=== PATIENT | female | born 1965 | race Hispanic/Latino ===

== ENCOUNTER → 2019-06-25 15:18 | Outpatient (CLI) | payer OTHER, SELFPAY ==
[2019-06-25 17:43] LABS: Add Manual Diff / Slide Review NO; Basophils Absolute Auto 0 /uL (0-100); Basophils Percent Auto 0.4 % (0-2); Eosinophils Absolute Auto 200 /uL (0-450); Eosinophils Percent Auto 2.6 % (2-4); Hematocrit 40.7 % (36-46); Hemoglobin 13.7 g/dL (12.0-16.0); Lymphocytes Absolute Auto 3500 /uL (1100-4500); Lymphocytes Percent Auto 44.9 % (25-40); Mean Corpuscular HGB Conc 33.6 % (30-36); Mean Corpuscular Hemoglobin 27.7 PG (26-34); Mean Corpuscular Volume 82.4 fL (80-100); Monocytes Absolute Auto 300 /uL (0-900); Monocytes Percent Auto 4.4 % (3-14); Neutrophils Absolute Auto 3700 /uL (1500-7000); Neutrophils Percent Auto 47.7 % (50-75); Red Blood Cell Count 4.94 X10^6/uL (4.0-5.2); Red Cell Distribution Width 13.9 % (11.6-14.8); White Blood Cell Count 7.7 X10^3/uL (4.5-11.0)
[2019-06-25 18:03] LABS: Platelet Count 52 X10^3/uL (150-400)
== END ==
PROVIDERS: Referring Provider Nurse Practitioner Family; Visit Provider Nurse Practitioner Family
DX: D75.1 Secondary polycythemia (principal)
CPT/HCPCS: 36415; 85025

== ENCOUNTER → 2019-11-27 14:31 | Outpatient (CLI) | payer OTHER, SELFPAY ==
[2019-11-28 23:17] LABS: COVID19 Sendout Not Detected (Not Detect)
== END ==
PROVIDERS: PCP Nurse Practitioner Family; Visit Provider Physician Assistant
DX: Z01.812 Encounter for preprocedural laboratory examination (principal)
CPT/HCPCS: 87635

== ENCOUNTER 2019-11-30 07:50 | Day surgery (SDC) | payer OTHER, SELFPAY ==
[2019-11-26 13:31] VITALS: BMI 32.6
[2019-11-30] VITALS (11 sets, daily range): BP systolic 118–162; BP diastolic 63–93; PULSE 71–110; RESP 14–21; TEMP 36.1–36.3; O2SAT 93–100; BMI 32.1
--- NOTE | 2019-11-30 10:26 | PM.PREOP ---
Pre-operative Note COVID-19 COVID-19 status: Negative Result date/Date tested (Pos, Neg/Pending): 11/27/19 Interval Note History & Physical reviewed/Exam performed by Physician: Yes Changes to H&P: No H&P completed within 30 days and has changed as indicated here:: See interim H&P.
--- NOTE | 2019-11-30 10:27 | PM.HP.1 ---
History of Present Illness History of Present Illness Date Patient Seen: 11/30/19 Time Patient Seen: 10:27 Chief complaint: Right Arthroscopy Shoulder Narrative: The patient has a full history and physical dated October 29, 2019 in the chart. There are no substantive updates to that history. The patient's surgery was delayed due to insurance authorization issues regarding the need for platelets prior to surgery. Patient History Medical History (Updated 11/30/19 @ 10:30 by Valeriy Valdivia MD) Humeral fracture (Acute) Family & Social History Social History: household members spouse,family Tobacco & Substance use: Tobacco type cigarettes Smoking Status Current every day smoker alcohol intake frequency holiday/special occasion Substance Use Type marijuana Meds Home Medications and Allergies Home Medications Medication Instructions Recorded Confirmed Type gabapentin 100 mg PO TID 11/30/19 11/30/19 History insulin glargine [Lantus Solostar 60 unit SUBCUT BEDTIME 11/30/19 11/30/19 History U-100 Insulin] insulin lispro [Humalog KwikPen 35 unit SUBCUT DAILY 11/30/19 11/30/19 History Insulin] Allergies Allergy/AdvReac Type Severity Reaction Status Date / Time No Known Drug Allergies Allergy Unverified 11/27/19 14:30 Review of Systems Review of Systems ROS: Yes All systems reviewed with the patient and are negative except as otherwise documented Exam Vital Signs (past 8 hours): - 11/30/19 08:39 11/30/19 09:39 11/30/19 10:04 Temperature 97.3 F L 97.4 F L 97.1 F L Pulse Rate 74 71 71 Respiratory Rate 20 16 16 Blood Pressure 127/65 138/67 129/63 Pulse Oximetry 98 Oxygen Delivery Method Room Air Narrative Exam Narrative: HEENT examination is normocephalic atraumatic. Chest is clear to auscultation. Heart is regular rate and rhythm no rubs murmurs or gallops. Abdomen is soft nontender with normal down will bowel sounds. Right upper extremity examination is as documented in prior office notes. Objective Labs Labs: Laboratory Results - last 24 hr 11/29/19 11/30/19 09:28 06:53 Blood Type A Positive Cancelled Rho(D) Type Cancelled Assessment & Plan Assessment & Plan narrative: As documented in the prior office notes, the patient has a work related right shoulder injury that has failed to respond to non operative measures. She is thrombocytopenic and the reason for this is unclear. Unfortunately we have not been allowed to workup because of her thrombocytopenia. We will be transfusing platelets prior to surgery and then she will undergo shoulder arthroscopy to address the shoulder pain. The risks benefits and alternatives were discussed with the patient on my prior preoperative visit in October. They have been repeated today. Risks discussed included but were not limited to: Potential excessive bleeding, potential failure to improve pain, stiffness, infection, nerve damage, deep venous thrombosis, pulmonary embolism, stroke, permanent paralysis and . COVID-19 COVID-19 status: Negative Result date/Date tested (Pos, Neg/Pending): 11/27/19 Time Spent With Patient Time with patient: 15-24 minutes
[2019-11-30 10:53] LABS: Platelet Count 112 X10^3/uL (150-400)
[2019-11-30] MEDS: LACTATED RINGERS 1,000 ML 42 ML IV ×2 (11:00→12:53)
[2019-11-30] MEDS: fentaNYL 100 MCG/2 ML INJ 50 MCG IV (11:09)
[2019-11-30] MEDS: MIDAZOLAM 2 MG/2 ML VIAL IV (11:09)
--- NOTE | 2019-11-30 11:17 | SUR.OPER ---
Lateral on padded OR bed with amador bag positioner, head on pillow, gel axillary roll in place, bottom leg bent with gel pad under knee to foot, upper leg straight and supported with pillows. Operative arm secured in shoulder positioning suspension device. non-operative arm secured on padded arm board. Safety belt at hip, tape over blanket securing lower legs.
[2019-11-30] MEDS: CEFAZOLIN 2 GM/100 ML FROZ.PIGGY IV (11:29)
--- NOTE | 2019-11-30 11:32 | SUR.PREOP ---
Block start time [1109] . Monitoring initiated and maintained throughout procedure. Oxygen and medications given per anesthesiologist instructions. Patient remained stable throughout procedure, no adverse reactions noted. Block end time [1124]. 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 pt taken to OR in stable condition by Lianet
[2019-11-30] MEDS: SODIUM CHLORIDE IRRIG SOLUTION 3,000 ML, EPINEPHrine 1 MG IRR (12:11)
[2019-11-30] MEDS: BUPIVACAINE 0.5% W/ EPI (PF) 30 ML VIAL INJ (12:11)
--- NOTE | 2019-11-30 12:29 | PM.PROC.1 ---
Procedures Date/Time Date of procedure: 11/30/19 Time of procedure: 11:09 Nerve Block Time out performed: Yes Local anesthetic used: other Location of anesthetic used: See notation below. Nerve blocks: brachial plexus (Right Interscalene Block) Procedure successful: Yes Patient tolerated procedure: well Complications: none Additional comments: Right Interscalene (Brachial Plexus) Block for post op pain relief. Procedure, benefits and risks explained to patient preoperatively with assistance from supervisor char house. Questions answered and patient signed the consent. Patient transferred to Block Room and monitors applied. O2 per NC placed. Patient name, site and side identified. Ultrasound and Nerve Stimulator utilized. Chloroprep and sterile drape placed. Landmarks ID'd and plexus visualized with US. Local skin wheal with Lidocaine 1% (25g needle). 50mm 22g sheathed nerve block needle advanced. Positive twitch to 6mAmp. Negative aspiration followed by 2ml test dose. Incremental aspirations-injection to total volume of 20m. (5ml Lidocaine 2% with epi and 15ml Bupivacaine 0.5%). Patient tolerated procedure well and was trasferred to OR for surgery. ESTEVAN Palomares MD
--- NOTE | 2019-11-30 13:06 | P.OP_ITS ---
Operative Date/Time/Diagnoses Date of procedure: 11/30/19 Time of procedure: 13:06 Pre-op diagnosis: Right shoulder strain with biceps rupture Post-op diagnosis: same Procedure & Clinicians Procedure: Right shoulder arthroscopic major debridement with debridement of synovitis, labral tear and biceps stump as well as subacromial decompression and lysis of subacromial scar Same procedure as scheduled: Yes Indications: The patient is a 54-year-old woman who injured her shoulder at work. She has previously injured this shoulder as well with a history of a humeral fracture. She went on to develop ongoing discomfort which was not relieved by non operative measures. She has agreed to surgery after discussion the risks, benefits and alternatives. Risks discussed included but were not limited to: Failure to improve, stiffness, infection, nerve damage, deep venous thrombosis, pulmonary embolism, stroke, myocardial infarction, permanent paralysis and . Surgeon: Valeriy Valdivia Click Yes if Unassisted: Yes Anesthesia Type: General, Peripheral nerve block and Local Operative Notes Findings: 1. Normal glenohumeral cartilage 2. Degenerative fraying of the superior labrum which was debrided 3. Intense inflammation of the synovial tissue in the superior shoulder 4. Intact glenohumeral ligaments 5. Intact subscapularis 6. Ruptured biceps with a small residual stump in the joint. 7. Intact supraspinatus with some calcified crystals in the capsule. 8. Intact infraspinatus 9. Normal axillary pouch 10. Intact bursal surface of the rotator cuff with no evidence for calcific d eposit overlying the area of the small areas of calcification in the joint capsule 11. Type 2 acromion with impingement lesion 12. Acromioclavicular joint not visualized due to lack of preoperative symptoms 13. Mildly restricted flexion and external rotation at the side with no evidence for pathologic laxity. Closure Type: primary Specimen(s): none sent Estimated Blood Loss (mL): 5 Blood products transfused: none Procedure in detail: The patient was seen in the preoperative area where she identified her right shoulder as the operative site. She received a platelet transfusion due to her history of thrombocytopenia. She then underwent an interscalene block for postoperative pain control. She also received preoperative antibiotics. She was taken to the operating room and placed on the operating room table in a supine position. She underwent the induction of a general anesthetic. She was then examined under anesthesia prior to being repositioned in the left lateral decubitus position with an axillary roll and amador bag as well as padding for all pressure points. The right arm was prepared from the fingertips to the base of the neck with ChloraPrep in the usual fashion draped through sterile drapes. The right arm was placed in 10 lb of balanced skin suspension. The subcutaneous landmarks were outlined on the skin with marking pen and portal sites selected for the posterior portal. Diagnostic arthroscopy ensued with result given above. During diagnostic arthroscopy an anterior portal was created both for outflow and the placement of a shaver. There was some difficulty accessing the shoulder joint for my 1st attempt this portal so a 2nd portal was made lower down using a Wissinger karon to identify the appropriately place. The shaver was then inserted and used to debride the labral tear, the biceps stump and the significant inflammation in the rotator interval. An 18 gauge needle was placed percutaneously near the area of the small calcific deposits in the rotator cuff capsule. The arthroscope was then withdrawn and placed in the subacromial space. A lateral portal was created for instrumentation. The suture was identified and the cuff in this area carefully palpated and perforated with the 18 gauge needle looking for calcific deposit, none was found. An extensive bursectomy was performed due to scarring in the subacromial bursa. There was obviously an impingement lesion. The type 2 acromion was therefore converted to a type 1 acromion using the cutting block technique. At the completion of this all arthroscopic equipment was removed, the wounds were closed with 4 0 Monocryl and Steri-Strips. A total of 10 mL of 0.5% Marcaine was injected into the soft tissues and the subacromial space for postoperative pain control. Dressings of sterile 4x4s, and ABD and an adhesive dressing were applied followed by the sling. The patient was then transferred to the recovery room in good condition having tolerated the procedure well. Complications: none Post-operative Condition: stable Disposition: PACU Plan for aftercare: The patient will be maintained on a standard arthroscopic subacromial decompression physical therapy program. She will be discharged today. Follow up will be in 10-14 days. She will receive a prescription for both oxycodone and Vistaril for pain control.
--- NOTE | 2019-11-30 16:44 | SUR.PHASEII ---
D/c instructions provided to pt and son with shape hand present. [facility] called and insurance info gotten to call to [facility] in [facility] so pt could get Rx fille.d left in w/c with RN escort to car with her son.
== END 2019-11-30 15:45 | disposition home or self-care (01) ==
PROVIDERS: Anesthesiology; PCP Nurse Practitioner Family; Referring Provider Orthopaedic Surgery; Visit Provider Orthopaedic Surgery
PROC: (CPT 29805; principal; 2019-11-30 10:45)
DX: S46.211A Strain of muscle, fascia and tendon of other parts of biceps, right arm, initial encounter (principal); S43.421A Sprain of right rotator cuff capsule, initial encounter; M25.811 Other specified joint disorders, right shoulder; D69.6 Thrombocytopenia, unspecified; Y99.0 Civilian activity done for income or pay
CPT/HCPCS: 29823; 29826; 36415; 36430; 64450; 85049; 86900; 86901; J0171; J0690; J2250; J2405; J2704; J3010; P9035

== ENCOUNTER → 2021-04-06 13:06 | Outpatient (CLI) | payer OTHER, SELFPAY ==
--- NOTE | 2021-04-06 | DI.RAD.S_ITS ---
PROCEDURE: FL SHOULDER INJECTION MR/CT RT INDICATIONS: Strain of muscle, fascia and tendon of other parts COMPARISON: None. TECHNIQUE: The indications, alternatives, benefits, risks, and complications of the procedure were explained to the patient. Written informed consent was obtained and placed in the chart. The shoulder was examined fluoroscopically and a site for needle placement chosen for entry into the glenohumeral joint from an anterior approach. The skin was prepped and draped in a sterile fashion, and 1% lidocaine infiltrated from skin down to joint capsule. A spinal needle was inserted into the glenohumeral joint, and a small amount of iodinated contrast media injected to confirm intra-articular placement of the needle tip. This was followed by approximately 12 mL dilute solution of a gadolinium containing MR contrast agent. The needle was removed and a dressing was applied. The patient was given postprocedural instructions and sent to the MR suite for MR imaging. FINDINGS: A single fluoroscopic spot image demonstrates intra-articular location of injected iodinated contrast. IMPRESSION: Successful fluoroscopically guided administration of dilute Gadolinium solution into the shoulder joint for MR arthrogram. Dictated by: Helen Fabian MD, PhD on 04/06/2021 at 14:52 Approved by: Helen Fabian MD, PhD on 04/06/2021 at 14:53
--- NOTE | 2021-04-06 | DI.MRI.S_ITS ---
PROCEDURE: MR SHOULDER RT W CON INDICATIONS: Strain of muscle, fascia and tendon of other parts TECHNIQUE: After the administration of 12 mL of dilute intra-articular Gadolinium contrast, oblique coronal T1 and T2 spin echo with fat saturation, oblique sagittal T1 spin echo with and without fat saturation, oblique sagittal T2 fast spin echo with fat saturation, axial T1 spin echo with fat saturation through the shoulder. COMPARISON: None. FINDINGS: Image quality: Excellent. Rotator cuff: Mild diffuse T2 signal elevation throughout the supraspinatus tendon at the humeral insertion site extending the musculotendinous junction. Superimposed high-grade intrasubstance and articular surface tearing of the mid and posterior supraspinatus tendon at the humeral insertion site extending the musculotendinous junction. Subscapularis, infraspinatus, and teres minor tendons are intact. No rotator cuff atrophy. Bones and bursae: No bone marrow contusions or fractures. Moderate acromioclavicular joint degeneration. The acromion demonstrates conventional anatomy, without an os acromiale. Capsule and soft tissues: The labrum and glenohumeral ligaments appear intact. The long head of the biceps tendon demonstrates normal location and morphology. The rotator interval appears normal, without fibrosis. The coracohumeral ligament is of normal thickness. No intra-articular bodies. IMPRESSION: 1. Supraspinatus tendinopathy with superimposed high-grade tearing. 2. Acromioclavicular joint osteoarthritis. Dictated by: Shima Flores M.D. on 04/06/2021 at 15:00 Approved by: Shima Flores M.D. on 04/06/2021 at 15:26
== END ==
PROVIDERS: PCP Nurse Practitioner Family; Referring Provider Orthopaedic Surgery; Visit Provider Orthopaedic Surgery
DX: S46.011A Strain of muscle(s) and tendon(s) of the rotator cuff of right shoulder, initial encounter (principal); M19.011 Primary osteoarthritis, right shoulder; X58.XXXA Exposure to other specified factors, initial encounter
CPT/HCPCS: 23350; 73222; 77002

== ENCOUNTER → 2022-01-07 12:19 | Outpatient (CLI) | payer OTHER, SELFPAY ==
[2022-01-07 13:59] LABS: Add Manual Diff / Slide Review NO; Basophils Absolute Auto 0 /uL (0-100); Basophils Percent Auto 0.5 % (0-2); Eosinophils Absolute Auto 300 /uL (0-450); Eosinophils Percent Auto 3.8 % (2-4); Hematocrit 40.4 % (36-46); Hemoglobin 13.6 g/dL (12.0-16.0); Lymphocytes Absolute Auto 3800 /uL (1100-4500); Lymphocytes Percent Auto 47.1 % (25-40); Mean Corpuscular HGB Conc 33.6 % (30-36); Mean Corpuscular Hemoglobin 27.6 PG (26-34); Mean Corpuscular Volume 82.2 fL (80-100); Monocytes Absolute Auto 500 /uL (0-900); Monocytes Percent Auto 5.9 % (3-14); Neutrophils Absolute Auto 3400 /uL (1500-7000); Neutrophils Percent Auto 42.7 % (50-75); Platelet Count 56 X10^3/uL (150-400); Red Blood Cell Count 4.92 X10^6/uL (4.0-5.2); Red Cell Distribution Width 13.7 % (11.6-14.8)
== END ==
PROVIDERS: PCP Nurse Practitioner Family; Referring Provider Orthopaedic Surgery; Visit Provider Orthopaedic Surgery
DX: Z01.812 Encounter for preprocedural laboratory examination (principal)
CPT/HCPCS: 36415; 85025

== ENCOUNTER → 2024-08-28 10:53 | Outpatient (CLI) | payer OTHER, SELFPAY ==
--- NOTE | 2024-08-28 10:56 | DI.ECHO.S_ITS ---
[facility] : : [address] : : [place] : : [id number] : : Phone: [phone] Echocardiogram Report + + :Name: MYLES PRADO Study Date: 08/28/2024 Height: 61 in : :[facility] ReadingLocation: Weight: 145 lb : : Gender: Female BSA: 1.6 m2 : :: 1965 Age: 59 yrs BP: 101/58 mmHg: :Reason For Study: CHRONIC SYSTOLIC HEART FAILURE : :Ordering Physician: ZANDER FUCHS Performed By: Adolfo Henry : :Referring: ZANDER FUCHS : + + Interpretation Summary 1. Mildly compromised left ventricular systolic function with ejection fraction of 45 to 50% there is slight hypokinesis of the inferolateral segment. Mild concentric LVH. Grade 2 diastolic dysfunction. 2. The right ventricular contractility is normal. 3. All cardiac chambers are of normal size. 4. No significant valvular abnormalities. 5. No obvious intracardiac shunts. 6. No obvious intracardiac masses nor thrombi. 7. No hemodynamically significant pericardial effusion. Conclusion: Mildly compromised left ventricular systolic function with no significant valvular abnormalities. When compared with previous echocardiogram, there is improvement of the left ventricular systolic function. Procedure: A two-dimensional transthoracic echocardiogram with color flow and Doppler was performed. The study quality was technically good. Comparison is made with the echocardiogram of 02/02/2024. The patient was in normal sinus rhythm during the exam. Left Ventricle: The left ventricle is normal in size. Left ventricular wall thickness is mildly increased. There is no ventricular septal defect visualized. The ejection fraction is estimated to be 45-50%. There are regional wall motion abnormalities as specified. Right Ventricle: The right ventricle is normal in size and function. Atria: The left atrial size is normal. Right atrial size is normal. There is no Doppler evidence for an interatrial shunt. Mitral Valve: The mitral valve leaflets appear normal. There is no evidence of stenosis, fluttering, or prolapse. There is no mitral regurgitation noted. Aortic Valve: The aortic valve is trileaflet. The aortic valve is mildly calcified. No aortic regurgitation is present. Tricuspid Valve: The tricuspid valve leaflets are thin and pliable. There is trace tricuspid regurgitation. Pulmonic Valve: The pulmonic valve leaflets are thin and pliable; valve motion is normal. There is trace pulmonic regurgitation. Great Vessels: The aortic root is normal size. The dimensions of the ascending aorta are normal. The pulmonary artery is normal size. The inferior vena cava was not visualized. Pericardium/ Pleura There is no pericardial effusion. MMode/2D Measurements & Calculations LVIDd: 3.6 cm LVOT diam: 1.7 cm LVIDs: 2.5 cm Ao root diam: 2.5 cm FS: 29.9 % asc Aorta Diam: 2.6 cm EPSS: 0.78 cm IVSd: 1.1 cm LVPWd: 1.1 cm LV chávez. diameter/BSA (cm/m^2): 2.2 LV sys. diameter/BSA (cm/m^2): 1.5 LA A2 area: 15.6 cm2 RA long axis: 3.4 cm LA A4 area: 13.7 cm2 RA area: 6.8 cm2 LA length (vol): 5.2 cm RA vol: 11.5 ml LA vol: 34.7 ml RA : 7.0 ml/m2 LA vol index: 21.0 ml/m2 RVD1 (basal): 3.8 cm RVD2 (mid): 3.3 cm TAPSE: 1.8 cm Doppler Measurements & Calculations Ao V2 max: 150.7 cm/sec LVOT Max Benedicto: 85.3 cm/sec Ao V2 mean: 116.0 cm/sec LV V1 max P.9 mmHg Ao max P.1 mmHg LV V1 VTI: 26.7 cm Ao mean P.7 mmHg HAILY(I,D): 1.3 cm2 Ao V2 VTI: 42.8 cm HAILY(V,D): 1.2 cm2 sev ratio: 0.62 HAILY indexed to BSA (cm^2/m^2): 0.82 MV E max benedicto: 88.7 cm/sec TR max benedicto: 125.9 cm/sec MV A max benedicto: 77.1 cm/sec TR max P.2 mmHg MV E/A: 1.2 PA V2 max: 92.1 cm/sec Med Peak E' Benedicto: 3.0 cm/sec PA V2 mean: 62.0 cm/sec E/E' med: 29.9 PA mean P.7 mmHg Lat Peak E' Benedicto: 3.6 cm/sec PA pr(Accel): 27.6 mmHg E/E' lat: 25.0 E/e' average: 27.4 MV dec time: 0.15 sec SV(LVOT): 57.6 ml Reading Physician:SUMAYA
== END ==
PROVIDERS: PCP Nurse Practitioner Family; Referring Provider Nurse Practitioner Family; Visit Provider Internal Medicine
DX: I50.22 Chronic systolic (congestive) heart failure (principal)
CPT/HCPCS: 93306

== ENCOUNTER 2025-03-23 14:57 | Emergency (ER) | payer OTHER, SELFPAY ==
[2025-03-23 15:14] VITALS: BP 114/54; PULSE 61; RESP 18; TEMP 36.3; O2SAT 99; BMI 27.8
[2025-03-23 17:15] VITALS: PULSE 66; O2SAT 100
[2025-03-23 17:30] VITALS: PULSE 65; RESP 15; O2SAT 100
[2025-03-23 17:31] VITALS: BP 107/52; PULSE 65; RESP 15; O2SAT 100
[2025-03-23 17:46] LABS: Hematocrit 48.6 % (36-46); Hemoglobin 16.0 g/dL (12.0-16.0); Lymphocytes Absolute Auto 1400 /uL (1100-4500); Mean Corpuscular HGB Conc 33.0 % (30-36); Mean Corpuscular Hemoglobin 27.6 PG (26-34); Mean Corpuscular Volume 83.6 fL (80-100); Platelet Count 54 X10^3/uL (150-400)
[2025-03-23 17:48] LABS: Add Manual Diff / Slide Review SLIDE REVIEW
[2025-03-23 17:59] LABS: Alanine Aminotransferase 26 IU/L (<35); Albumin 4.6 g/dL (3.5-5.0); Albumin Globulin Ratio 1.3 (1.0-2.8); Alkaline Phosphatase 103 U/L (38-126); Blood Urea Nitrogen 20 mg/dL (7-17); Calcium 9.6 mg/dL (8.4-10.2); Carbon Dioxide 24 mmol/L (22-32); Chloride 107 mmol/L (98-107); Estimated Glomerular Filt Rate > 60 mL/min (>60); Globulin 3.5 g/dL (1.7-4.1); Glucose 207 mg/dL (70-99); HEMOLYSIS 36 (0-50); Potassium 4.3 mmol/L (3.4-5.1); Sodium 141 mmol/L (137-145); Total Protein 8.1 g/dL (6.3-8.2)
[2025-03-23 18:00] VITALS: BP 110/53; PULSE 66; RESP 14; O2SAT 100
[2025-03-23 18:11] LABS: Troponin I 0.019 ng/mL (0.01-0.034)
[2025-03-23 18:20] LABS: RBC Morphology Normal Morphology
[2025-03-23 18:30] VITALS: BP 125/61; PULSE 66; RESP 15; O2SAT 100
--- NOTE | 2025-03-23 18:33 | ED.GENADULT ---
HPI - General Adult General Chief complaint: Diabetic Problem Stated complaint: Poss blood sugar low, urinary issues, chills Time Seen by Provider: 03/23/25 17:13 Source: credit collections clerk Mode of arrival: Ambulatory History of Present Illness HPI narrative: 60-year-old female patient with a history of type 2 diabetes , heart valve replacementand hypertension who had unconsciousness or poor responsiveness when her sister visited her this morning. She was diaphoretic and her sister administered soda pop and the patient's mental status improved some. Paramedics arrived and found a blood sugar of 56. Repeat sugar 58. Patient declined ambulance transport. The paramedics gave her glucose. Patient states that she feels very tired and sleepy on presentation to triage. She takes daily Lantus and has a weeklyibed injection. She says she takes her medications as prescribed. labs had been sent by the time I saw the patient. Patient had no energy yesterday and 3 episodes of diarrhea but no nausea, vomiting or fever. She had poor appetite. Today her appetite has been better and no diarrhea. Related Data Home Medications ?Medication ?Instructions ?Recorded ?Confirmed gabapentin 100 mg capsule 100 mg PO TID 11/30/19 11/30/19 insulin glargine 100 unit/mL (3 60 unit SUBCUT BEDTIME 11/30/19 11/30/19 mL) subcutaneous pen (Lantus Solostar U-100 Insulin) insulin lispro 100 unit/mL 35 unit SUBCUT DAILY 11/30/19 11/30/19 subcutaneous pen (Humalog KwikPen (U-100) Insulin) Previous Rx's ?Medication ?Instructions ?Recorded hydroxyzine pamoate 25 mg capsule 25 mg PO Q6HR PRN Spasms #30 caps 11/30/19 oxycodone 5 mg tablet 5 mg PO Q4HR PRN Pain, Moderate 11/30/19 (4-6) #40 tabs Allergies Allergy/AdvReac Type Severity Reaction Status Date / Time No Known Drug Allergies Allergy Verified 03/23/25 15:14 Review of Systems Review of Systems ROS Unobtainable: All systems reviewed & are unremarkable except as noted in HPI and below Constitutional Constitutional: Reports as per HPI Gastrointestinal Gastrointestinal: Reports as per HPI Endocrine Endocrine: Reports as per HPI Patient History Medical History (Updated 03/23/25 @ 18:48 by Tito Rojas MD) Humeral fracture Social History household members: spouse and family Smoking Status: Current every day smoker Smoking Status: Current every day smoker alcohol intake frequency: holidays/special occasions only Exam Narrative Exam Narrative: General: Alert and conversant. No distress. Appears well nourished and well hydrated Craniofacial: No evidence of trauma. Nontender and no swelling. Eyes: PERRLA EOMI conjunctiva clear HEENT: Tragus, pinnae nontender. Oropharynx clear with no swelling, exudate or asymmetry of the pharynx. Nares clear. No sinus tenderness Neck: No tenderness or adenopathy. No meningismus. No JVD Lungs: Clear to auscultation with good air movement. No wheezing, rales or rhonchi. No respiratory distress Cardiac: Regular rate and rhythm with no appreciable murmur or gallop Abdomen: Soft, nontender with no distention or masses. Normal bowel sounds. No rebound or guarding Musculoskeletal: Exam of the extremities, axial spine and ribcage reveals no deformity, bony tenderness or swelling. Range of motion intact Neuro: Alert and oriented. Cranial nerves, motor, sensory and cerebellar all grossly intact. No focal deficit Skin: Warm and normal color. No rashes Psychological: Normal affect and interaction. No evidence of delusion or psychosis. Normal mood. Initial Vital Signs Initial Vital Signs: Vital Signs Temperature 97.3 F L 03/23/25 15:14 Pulse Rate 61 03/23/25 15:14 Respiratory Rate 18 03/23/25 15:14 Blood Pressure 114/54 L 03/23/25 15:14 Pulse Oximetry 99 03/23/25 15:14 Oxygen Delivery Method Room Air 03/23/25 15:14 Course Orders Ordered: ED Orders 03/23/25 17:14 EKG-12 Lead Stat 03/23/25 17:36 CBC Auto Diff [Complete Blood Count AUTO DIFF] Stat CMP [Comprehensive Metabolic Panel] Stat Trop I [Troponin I] Stat Vital Signs Vital signs: Vital Signs - 8 hr 03/23/25 17:15 03/23/25 17:30 03/23/25 17:31 Pulse Rate 66 65 65 Respiratory Rate 15 15 Blood Pressure Pulse Oximetry 100 100 100 Oxygen Delivery Method Room Air 03/23/25 17:31 03/23/25 18:00 03/23/25 18:00 Pulse Rate 66 Respiratory Rate 14 Blood Pressure 107/52 L 110/53 L Pulse Oximetry 100 Oxygen Delivery Method 03/23/25 18:30 03/23/25 18:30 Pulse Rate 66 Respiratory Rate 15 Blood Pressure 125/61 Pulse Oximetry 100 Oxygen Delivery Method Medical Decision Making Medical Records Medical records reviewed: Yes I reviewed the patient's medical records. Lab Data Lab results reviewed: Yes I reviewed the patient's lab results. 03/23/25 17:36 03/23/25 17:36 Labs: Lab Results 03/23/25 03/23/25 03/23/25 Range/Units 15:25 17:36 18:41 WBC 6.8 (4.5-11.0) X10^3/uL RBC 5.82 H (4.0-5.2) X10^6/uL Hgb 16.0 (12.0-16.0) g/dL Hct 48.6 H (36-46) % MCV 83.6 (80-100) fL MCH 27.6 (26-34) PG MCHC 33.0 (30-36) % RDW 14.4 (11.6-14.8) % Plt Count 54 L (150-400) X10^3/uL Neut % (Auto) 73.1 (50-75) % Lymph % (Auto) 20.4 L (25-40) % Andrews % (Auto) 4.0 (3-14) % Eos % (Auto) 1.6 L (2-4) % Baso % (Auto) 0.9 (0-2) % Neut # (Auto) 5000 (2529-9118) /uL Lymph # (Auto) 1400 (4306-6197) /uL Andrews # (Auto) 300 (0-900) /uL Eos # (Auto) 100 (0-450) /uL Baso # (Auto) 100 (0-100) /uL Plt Morphology Comment RBC Morphology Normal morphology Sodium 141 (137-145) mmol/L Potassium 4.3 (3.4-5.1) mmol/L Chloride 107 (98-107) mmol/L Carbon Dioxide 24 (22-32) mmol/L BUN 20 H (7-17) mg/dL Creatinine 0.72 (0.52-1.04) mg/dL Estimated GFR > 60 (>60) mL/min BUN/Creatinine Ratio 27.8 H (6-22) Glucose 207 H (70-99) mg/dL POC Whole Bld Glucose 216 H 177 H (70-99) mg/dL Calcium 9.6 (8.4-10.2) mg/dL Total Bilirubin 0.6 (0.2-1.3) mg/dL AST 33 (14-36) IU/L ALT 26 (<35) IU/L Alkaline Phosphatase 103 (38-126) U/L Troponin I 0.019 (0.01-0.034) ng/mL Total Protein 8.1 (6.3-8.2) g/dL Albumin 4.6 (3.5-5.0) g/dL Globulin 3.5 (1.7-4.1) g/dL Albumin/Globulin Ratio 1.3 (1.0-2.8) Point of Care Testing Glucose POC 177 Urine Dip Bedside Urine Glucose 1000 mg/dl Bedside Urine Bilirubin - Negative Bedside Urine Ketone - Negative Urine Specific [place] 1.015 Bedside Urine Occult Blood - Negative Bedside Urine pH 6.0 Bedside Urine Protein - Negative Bedside Urine Urobilinogen - Negative Bedside Urine Nitrite - Negative Bedside Urine Leukocytes - Negative Esterase Point of care testing: Point of Care Testing Glucose POC 177 Urine Dip Bedside Urine Glucose 1000 mg/dl Bedside Urine Bilirubin - Negative Bedside Urine Ketone - Negative Urine Specific [place] 1.015 Bedside Urine Occult Blood - Negative Bedside Urine pH 6.0 Bedside Urine Protein - Negative Bedside Urine Urobilinogen - Negative Bedside Urine Nitrite - Negative Bedside Urine Leukocytes - Negative Esterase MDM Narrative Medical decision making narrative: patient has improved while under observation here in the ER. No further hypoglycemia or symptoms. This may have been initiated by her diarrhea and mild viral illness most of which occurred yesterday. However she is now with stable blood sugars. Her son is here to take her home and keep an eye on her. She will monitor blood sugars and take frequent small calories Discharge Plan Departure Patient Disposition: Home Clinical Impression: Hypoglycemia, Viral illness Instructions: Hypoglycemia, DI for Diabetes Type 2 Activity Restrictions/Additional Instructions: plan: Hydration, rest and supportive care with close monitoring of blood glucose and frequent small meals to maintain adequate blood glucose. Follow up with your doctor for recheck within the next 4 days. Return to the ER if worse Prescriptions: No Action gabapentin 100 mg Capsule 100 mg PO TID insulin lispro [Humalog KwikPen Insulin] 100 unit/mL Insulin Pen 35 unit SUBCUT DAILY Rx Instructions: took 20 units last night with dinner Lantus Solostar U-100 Insulin 100 unit/mL (3 mL) Insulin Pen 60 unit SUBCUT BEDTIME oxycodone 5 mg Tablet 5 mg PO Q4HR PRN (Reason: Pain, Moderate (4-6)) Qty: 40 0RF hydroxyzine pamoate 25 mg Capsule 25 mg PO Q6HR PRN (Reason: Spasms) Qty: 30 0RF Referrals: Chani Mora ARNP [Primary Care Provider, Medical] Stand Alone Forms: Patient Portal/API
== END 2025-03-23 19:06 | disposition home or self-care (01) ==
PROVIDERS: Emergency Medicine; Emergency Provider Emergency Medicine; PCP Nurse Practitioner Family
DX: E11.649 Type 2 diabetes mellitus with hypoglycemia without coma (principal); Z79.4 Long term (current) use of insulin; Z95.2 Presence of prosthetic heart valve
CPT/HCPCS: 36415; 80053; 81003; 82962; 84484; 85025; 99283

== ENCOUNTER 2025-04-19 14:04 | Observation (INO) | payer SELFPAY ==
[2025-04-19] VITALS (24 sets, daily range): BP systolic 90–118; BP diastolic 41–56; PULSE 72–90; RESP 16–22; TEMP 36.7–37.4; O2SAT 90–100; BMI 27.8; BMI 27.5
--- NOTE | 2025-04-19 14:25 | ED.ABDPAIN ---
HPI - Abdominal Pain <Mago Schuster PA-C - Last Filed: 04/19/25 19:36> General Chief Complaint: Abdominal Pain Stated Complaint: back/abd px 4 days Time Seen by Provider: 04/19/25 14:21 Source: patient Mode of arrival: Ambulatory History of Present Illness HPI narrative: Ms. Oumar Chowdhury is a pleasant 60-year-old female, [place] speaking, with a past medical history of insulin-dependent T2DM, HTN, HLD, neuropathy, prior valve repair who presents to the emergency department with her for back and abdominal pain x4 days. Patient is in severe pain in her lower abdomen and lower back. States that she has been having fevers for the last 2 or 3 days. She is having pain with urination and passing gas. She had 1 episode of nonbloody vomiting yesterday. Despite using hospital continuous washer operator, history is somewhat limited due to patient's acute pain. Blood pressure is somewhat low but equal in both arms. No chest pain or trouble breathing. Related Data Home Medications ?Medication ?Instructions ?Recorded ?Confirmed gabapentin 100 mg capsule 300 mg PO TID 11/30/19 04/19/25 insulin glargine 100 unit/mL (3 15 unit SUBCUT DAILY 11/30/19 04/19/25 mL) subcutaneous pen (Lantus Solostar U-100 Insulin) insulin lispro 100 unit/mL 35 unit SUBCUT DAILY 11/30/19 04/19/25 subcutaneous pen (Humalog KwikPen (U-100) Insulin) acetaminophen 325 mg tablet 650 mg PO Q6H pain 04/19/25 04/19/25 (Tylenol) aspirin 81 mg capsule 81 mg PO DAILY 04/19/25 04/19/25 atorvastatin 80 mg tablet 80 mg PO BEDTIME 04/19/25 04/19/25 empagliflozin 10 mg tablet 10 mg PO DAILY 04/19/25 04/19/25 (Jardiance) insulin degludec See Rx Instructions SUBCUT .COMPLEX 04/19/25 04/19/25 lisinopril 2.5 mg tablet 2.5 mg PO DAILY 04/19/25 04/19/25 metoprolol succinate 25 mg 25 mg PO DAILY 04/19/25 04/19/25 tablet,extended release 24 hr semaglutide 0.25 mg or 0.5 mg (2 0.25 mg SUBCUT QWEEK 04/19/25 04/19/25 mg/3 mL) subcutaneous pen injector (Ozempic) spironolactone 25 mg tablet 12.5 mg PO DAILY 04/19/25 04/19/25 Allergies Allergy/AdvReac Type Severity Reaction Status Date / Time No Known Drug Allergies Allergy Verified 04/19/25 14:17 Review of Systems <Mago Schuster PA-C - Last Filed: 04/19/25 19:36> Review of Systems ROS Unobtainable: All systems reviewed & are unremarkable except as noted in HPI and below Patient History <Mago Schuster PA-C - Last Filed: 04/19/25 19:36> Medical History Humeral fracture Social History household members: spouse and family Smoking Status: Current every day smoker Smoking Status: Current every day smoker alcohol intake frequency: holidays/special occasions only Exam <Mago Schuster PA-C - Last Filed: 04/19/25 19:36> Narrative Exam Narrative: GENERAL: 60 year old patient appears stated age. Well-developed patient, in distress 2/2 abdominal pain. HEAD: Atraumatic. Normocephalic. NECK: Trachea midline. Cervical ROM intact. CARDIOVASCULAR: Regular rate and rhythm. RESPIRATORY: ?Nonlabored respirations. ?Speaking in clear, full sentences. ?Clear to auscultation. Breath sounds equal bilaterally. No wheezes, rales, or rhonchi. ? GASTROINTESTINAL: Abdomen soft, nondistended. Exquisitely tender diffusely but worse in the lower quadrants. She does have rebound and guarding. Bowel sounds are auscultated. EXTREMITIES: No LE edema. NEURO: Alert and oriented, is able to answer questions using continuous washer operator. SKIN: Sternal surgical scar. Small abdominal laparoscopic surgical scars. Initial Vital Signs Initial Vital Signs: Vital Signs Temperature 99.3 F 04/19/25 14:17 Pulse Rate 88 04/19/25 14:17 Respiratory Rate 16 04/19/25 14:17 Blood Pressure 90/52 L 04/19/25 14:17 Pulse Oximetry 98 04/19/25 14:17 Oxygen Delivery Method Room Air 04/19/25 14:17 <Tito Rojas MD - Last Filed: 04/19/25 23:13> Initial Vital Signs Initial Vital Signs: Vital Signs Temperature 99.3 F 04/19/25 14:17 Pulse Rate 88 04/19/25 14:17 Respiratory Rate 16 04/19/25 14:17 Blood Pressure 90/52 L 04/19/25 14:17 Pulse Oximetry 98 04/19/25 14:17 Oxygen Delivery Method Room Air 04/19/25 14:17 Course <Mago Schuster PA-C - Last Filed: 04/19/25 19:36> Orders Ordered: ED Orders 04/19/25 14:27 Urinalysis and Microscopic Stat 04/19/25 14:34 CT abdomen pelvis w con Stat EKG-12 Lead Stat 04/19/25 14:57 XR chest 1V Stat 04/19/25 15:00 Blood Culture Stat 04/19/25 15:05 Complete Blood Count AUTO DIFF Stat Comprehensive Metabolic Panel Stat Lactate (Lactic Acid) Stat PTT Partial Thromboplastin Mciky Stat Procalcitonin Stat Prothrombin Time INR Stat Troponin I Stat 04/20/25 08:00 Complete Blood Count AUTO DIFF Routine Platelets Stat Fentanyl (Fentanyl 100 Mcg/2 Ml Inj) 50 mcg IV Q1H PRN PRN Reason: Pain, Severe (7-10) Last Admin: 04/19/25 19:26 Dose: 50 mcg Documented By: Admin: 04/19/25 18:17 Dose: 50 mcg Documented By: TONJA Hydromorphone HCl (Hydromorphone Hcl 0.5 Mg/0.5 Ml Syringe) 1 mg IV Q2H PRN PRN Reason: Pain, Moderate (4-6) Hydromorphone HCl (Hydromorphone 1 Mg/Ml Syringe) 2 mg IV Q3HR PRN PRN Reason: severe pain (7-10) Potassium Chloride/Dextrose/Sod Cl (Dextrose 5%-0.45%Ns W/Kcl 20meq) 1,000 mls @ 100 mls/hr IV CONT ALYSON Last Admin: 04/19/25 20:52 Dose: 100 mls/hr Documented By: TONJA Piperacillin Sod/Tazobactam (Sod 4.5 gm/ Sodium Chloride) 100 mls @ 25 mls/hr IV Q8H ALYSON Naloxone HCl (Naloxone 0.4 Mg/Ml Vial) 0.2 mg IV Q2MIN PRN PRN Reason: Opiate Reversal Discontinued Medications Dextrose (Dextrose 50 % In Water 25 Gm/50 Ml Syringe) 25 gm IV NOW ONE Stop: 04/19/25 14:49 Last Admin: 04/19/25 16:02 Dose: 25 gm Documented By: Martir Dextrose (Dextrose 50 % In Water 25 Gm/50 Ml Syringe) 25 gm IV NOW ONE Stop: 04/19/25 16:30 Last Admin: 04/19/25 19:29 Dose: 25 gm Documented By: RLC Fentanyl (Fentanyl 100 Mcg/2 Ml Inj) 25 mcg IV NOW ONE Stop: 04/19/25 15:29 Last Admin: 04/19/25 15:50 Dose: 25 mcg Documented By: Martir Sodium Chloride (Normal Saline 0.9%) 1,434 mls @ 956 mls/hr 30 ml/kg infuse over 90 min (1434 ml) IV NOW ONE Stop: 04/19/25 16:03 Last Infusion: 04/19/25 16:39 Dose: Infused Documented By: [facility] Admin: 04/19/25 15:07 Dose: 956 mls/hr Documented By: [facility] Piperacillin Sod/Tazobactam (Sod 4.5 gm/ Sodium Chloride) 100 mls @ 200 mls/hr IV STAT ONE Stop: 04/19/25 14:35 Last Infusion: 04/19/25 16:03 Dose: Infused Documented By: [facility] Admin: 04/19/25 15:11 Dose: 200 mls/hr Documented By: Martir Dextrose/Sodium Chloride (Dextrose 5%-0.9% Ns) 1,000 mls @ 125 mls/hr IV CONT ALYSON Last Infusion: 04/19/25 20:50 Dose: Infused Documented By: [facility] Admin: 04/19/25 18:17 Dose: 125 mls/hr Documented By: Martir Potassium Chloride 20 meq/ (Sodium Chloride) 1,010 mls @ 100 mls/hr IV CONT ALYSON Last Admin: 04/19/25 20:51 Dose: Not Given Documented By: RLMartir Piperacillin Sod/Tazobactam (Sod 4.5 gm/ Sodium Chloride) 100 mls @ 25 mls/hr IV Q8H [facility] Ondansetron HCl (Ondansetron 4 Mg/2 Ml Inj) 4 mg IV NOW ONE Stop: 04/19/25 14:43 Last Admin: 04/19/25 15:09 Dose: 4 mg Documented By: Martir Vital Signs Vital signs: Vital Signs - 8 hr 04/19/25 15:30 04/19/25 16:02 04/19/25 16:03 Pulse Rate 77 80 Respiratory Rate Blood Pressure 97/49 L Pulse Oximetry 99 99 04/19/25 16:03 04/19/25 16:30 04/19/25 16:30 Pulse Rate 80 90 Respiratory Rate Blood Pressure 112/54 L Pulse Oximetry 100 97 04/19/25 17:00 04/19/25 17:00 04/19/25 17:30 Pulse Rate 82 Respiratory Rate Blood Pressure 93/50 L 105/53 L Pulse Oximetry 99 04/19/25 17:30 04/19/25 18:00 04/19/25 18:00 Pulse Rate 81 79 Respiratory Rate 19 17 Blood Pressure 110/54 L Pulse Oximetry 100 93 04/19/25 18:30 04/19/25 18:30 04/19/25 19:00 Pulse Rate 77 Respiratory Rate 17 Blood Pressure 118/55 L 100/49 L Pulse Oximetry 99 04/19/25 19:00 04/19/25 19:22 04/19/25 19:22 Pulse Rate 75 74 Respiratory Rate 17 19 Blood Pressure 93/44 L Pulse Oximetry 91 90 L 04/19/25 19:30 04/19/25 19:31 04/19/25 19:31 Pulse Rate 72 73 Respiratory Rate 18 19 Blood Pressure 90/41 L Pulse Oximetry 100 99 <Tito Rojas MD - Last Filed: 04/19/25 23:13> Orders Ordered: ED Orders 04/19/25 14:27 Urinalysis and Microscopic Stat 04/19/25 14:34 CT abdomen pelvis w con Stat EKG-12 Lead Stat 04/19/25 14:57 XR chest 1V Stat 04/19/25 15:00 Blood Culture Stat 04/19/25 15:05 Complete Blood Count AUTO DIFF Stat Comprehensive Metabolic Panel Stat Lactate (Lactic Acid) Stat PTT Partial Thromboplastin Micky Stat Procalcitonin Stat Prothrombin Time INR Stat Troponin I Stat 04/20/25 08:00 Complete Blood Count AUTO DIFF Routine Platelets Stat Fentanyl (Fentanyl 100 Mcg/2 Ml Inj) 50 mcg IV Q1H PRN PRN Reason: Pain, Severe (7-10) Last Admin: 04/19/25 19:26 Dose: 50 mcg Documented By: Admin: 04/19/25 18:17 Dose: 50 mcg Documented By: TONJA Hydromorphone HCl (Hydromorphone Hcl 0.5 Mg/0.5 Ml Syringe) 1 mg IV Q2H PRN PRN Reason: Pain, Moderate (4-6) Hydromorphone HCl (Hydromorphone 1 Mg/Ml Syringe) 2 mg IV Q3HR PRN PRN Reason: severe pain (7-10) Potassium Chloride/Dextrose/Sod Cl (Dextrose 5%-0.45%Ns W/Kcl 20meq) 1,000 mls @ 100 mls/hr IV CONT ALYSON Last Admin: 04/19/25 20:52 Dose: 100 mls/hr Documented By: TONJA Piperacillin Sod/Tazobactam (Sod 4.5 gm/ Sodium Chloride) 100 mls @ 25 mls/hr IV Q8H ALYSON Naloxone HCl (Naloxone 0.4 Mg/Ml Vial) 0.2 mg IV Q2MIN PRN PRN Reason: Opiate Reversal Discontinued Medications Dextrose (Dextrose 50 % In Water 25 Gm/50 Ml Syringe) 25 gm IV NOW ONE Stop: 04/19/25 14:49 Last Admin: 04/19/25 16:02 Dose: 25 gm Documented By: TONJA Dextrose (Dextrose 50 % In Water 25 Gm/50 Ml Syringe) 25 gm IV NOW ONE Stop: 04/19/25 16:30 Last Admin: 04/19/25 19:29 Dose: 25 gm Documented By: TONJA Fentanyl (Fentanyl 100 Mcg/2 Ml Inj) 25 mcg IV NOW ONE Stop: 04/19/25 15:29 Last Admin: 04/19/25 15:50 Dose: 25 mcg Documented By: TONJA Sodium Chloride (Normal Saline 0.9%) 1,434 mls @ 956 mls/hr 30 ml/kg infuse over 90 min (1434 ml) IV NOW ONE Stop: 04/19/25 16:03 Last Infusion: 04/19/25 16:39 Dose: Infused Documented By: Admin: 04/19/25 15:07 Dose: 956 mls/hr Documented By: TONJA Piperacillin Sod/Tazobactam (Sod 4.5 gm/ Sodium Chloride) 100 mls @ 200 mls/hr IV STAT ONE Stop: 04/19/25 14:35 Last Infusion: 04/19/25 16:03 Dose: Infused Documented By: Admin: 04/19/25 15:11 Dose: 200 mls/hr Documented By: TONJA Dextrose/Sodium Chloride (Dextrose 5%-0.9% Ns) 1,000 mls @ 125 mls/hr IV CONT ALYSON Last Infusion: 04/19/25 20:50 Dose: Infused Documented By: Admin: 04/19/25 18:17 Dose: 125 mls/hr Documented By: TONJA Potassium Chloride 20 meq/ (Sodium Chloride) 1,010 mls @ 100 mls/hr IV CONT ALYSON Last Admin: 04/19/25 20:51 Dose: Not Given Documented By: TONJA Piperacillin Sod/Tazobactam (Sod 4.5 gm/ Sodium Chloride) 100 mls @ 25 mls/hr IV Q8H [facility] Ondansetron HCl (Ondansetron 4 Mg/2 Ml Inj) 4 mg IV NOW ONE Stop: 04/19/25 14:43 Last Admin: 04/19/25 15:09 Dose: 4 mg Documented By: TONJA Vital Signs Vital signs: Vital Signs - 8 hr 04/19/25 15:30 04/19/25 16:02 04/19/25 16:03 Pulse Rate 77 80 Respiratory Rate Blood Pressure 97/49 L Pulse Oximetry 99 99 04/19/25 16:03 04/19/25 16:30 04/19/25 16:30 Pulse Rate 80 90 Respiratory Rate Blood Pressure 112/54 L Pulse Oximetry 100 97 04/19/25 17:00 04/19/25 17:00 04/19/25 17:30 Pulse Rate 82 Respiratory Rate Blood Pressure 93/50 L 105/53 L Pulse Oximetry 99 04/19/25 17:30 04/19/25 18:00 04/19/25 18:00 Pulse Rate 81 79 Respiratory Rate 19 17 Blood Pressure 110/54 L Pulse Oximetry 100 93 04/19/25 18:30 04/19/25 18:30 04/19/25 19:00 Pulse Rate 77 Respiratory Rate 17 Blood Pressure 118/55 L 100/49 L Pulse Oximetry 99 04/19/25 19:00 04/19/25 19:22 04/19/25 19:22 Pulse Rate 75 74 Respiratory Rate 17 19 Blood Pressure 93/44 L Pulse Oximetry 91 90 L 04/19/25 19:30 04/19/25 19:31 04/19/25 19:31 Pulse Rate 72 73 Respiratory Rate 18 19 Blood Pressure 90/41 L Pulse Oximetry 100 99 MDM - Abdominal Pain <Mago C CHA Schuster - Last Filed: 04/19/25 19:36> Medical Records Attestation: I reviewed the patient's medical records. Lab Data 04/19/25 15:05 04/19/25 15:05 Labs: Lab Results 04/19/25 04/19/25 04/19/25 Range/Units 14:27 14:44 15:05 WBC 12.3 H (4.5-11.0) X10^3/uL RBC 5.37 H (4.0-5.2) X10^6/uL Hgb 14.5 (12.0-16.0) g/dL Hct 43.7 (36-46) % MCV 81.4 (80-100) fL MCH 27.0 (26-34) PG MCHC 33.2 (30-36) % RDW 14.0 (11.6-14.8) % Plt Count 51 L (150-400) X10^3/uL Neut % (Auto) 79.4 H (50-75) % Lymph % (Auto) 11.7 L (25-40) % [place] % (Auto) 7.7 (3-14) % Eos % (Auto) 0.5 L (2-4) % Baso % (Auto) 0.7 (0-2) % Neut # (Auto) 9800 H (3547-8114) /uL Lymph # (Auto) 1400 (9792-3381) /uL [place] # (Auto) 900 (0-900) /uL Eos # (Auto) 100 (0-450) /uL Baso # (Auto) 100 (0-100) /uL PT 11.2 (9.4-12.5) SECONDS INR 1.0 (0.9-1.3) APTT 31 (25.1-36.5) SECONDS Sodium 139 (137-145) mmol/L Potassium 4.0 (3.4-5.1) mmol/L Chloride 106 (98-107) mmol/L Carbon Dioxide 24 (22-32) mmol/L BUN 15 (7-17) mg/dL Creatinine 0.75 (0.52-1.04) mg/dL Estimated GFR > 60 (>60) mL/min BUN/Creatinine Ratio 20.0 (6-22) Glucose 63 L (70-99) mg/dL POC Whole Bld Glucose 62 L (70-99) mg/dL Lactate 1.1 (0.7-2.1) mmol/L Calcium 9.3 (8.4-10.2) mg/dL Total Bilirubin 0.8 (0.2-1.3) mg/dL AST 33 (14-36) IU/L ALT 22 (<35) IU/L Alkaline Phosphatase 86 (38-126) U/L Troponin I 0.013 (0.01-0.034) ng/mL Total Protein 7.3 (6.3-8.2) g/dL Albumin 4.1 (3.5-5.0) g/dL Globulin 3.2 (1.7-4.1) g/dL Albumin/Globulin Ratio 1.3 (1.0-2.8) Procalcitonin 0.095 (<0.5) ng/mL Urine Color Yellow Urine Appearance Clear Urine pH 7.0 (4.5-8.0) Ur Specific Lima 1.015 (1.000-1.035) Urine Protein Negative (Negative) Urine Glucose (UA) 3+ H (Negative) g/dL Urine Ketones Negative (NEGATIVE) Urine Occult Blood Negative (Negative) Urine Nitrate Negative (Negative) Urine Bilirubin Negative (NEGATIVE) Urine Urobilinogen 1.0 (0.2) E.U./dL Ur Leukocyte Esterase Negative (NEGATIVE) Urine RBC None seen (0-5/HPF) Urine WBC None seen (0-5/HPF) Ur Squamous Epith Cells 0-1 /hpf (0-5/HPF) Urine Bacteria None seen (None) Urine Mucus 1+ H (Negative) Ur Culture Indicated? Cult not indicated Vol Urine Centrifuged 10ml (spun) 04/19/25 04/19/25 Range/Units 16:35 19:19 WBC (4.5-11.0) X10^3/uL RBC (4.0-5.2) X10^6/uL Hgb (12.0-16.0) g/dL Hct (36-46) % MCV (80-100) fL MCH (26-34) PG MCHC (30-36) % RDW (11.6-14.8) % Plt Count (150-400) X10^3/uL Neut % (Auto) (50-75) % Lymph % (Auto) (25-40) % [place] % (Auto) (3-14) % Eos % (Auto) (2-4) % Baso % (Auto) (0-2) % Neut # (Auto) (9365-6510) /uL Lymph # (Auto) (1711-5718) /uL [place] # (Auto) (0-900) /uL Eos # (Auto) (0-450) /uL Baso # (Auto) (0-100) /uL PT (9.4-12.5) SECONDS INR (0.9-1.3) APTT (25.1-36.5) SECONDS Sodium (137-145) mmol/L Potassium (3.4-5.1) mmol/L Chloride (98-107) mmol/L Carbon Dioxide (22-32) mmol/L BUN (7-17) mg/dL Creatinine (0.52-1.04) mg/dL Estimated GFR (>60) mL/min BUN/Creatinine Ratio (6-22) Glucose (70-99) mg/dL POC Whole Bld Glucose 162 H D 72 (70-99) mg/dL Lactate (0.7-2.1) mmol/L Calcium (8.4-10.2) mg/dL Total Bilirubin (0.2-1.3) mg/dL AST (14-36) IU/L ALT (<35) IU/L Alkaline Phosphatase (38-126) U/L Troponin I (0.01-0.034) ng/mL Total Protein (6.3-8.2) g/dL Albumin (3.5-5.0) g/dL Globulin (1.7-4.1) g/dL Albumin/Globulin Ratio (1.0-2.8) Procalcitonin (<0.5) ng/mL Urine Color Urine Appearance Urine pH (4.5-8.0) Ur Specific Lima (1.000-1.035) Urine Protein (Negative) Urine Glucose (UA) (Negative) g/dL Urine Ketones (NEGATIVE) Urine Occult Blood (Negative) Urine Nitrate (Negative) Urine Bilirubin (NEGATIVE) Urine Urobilinogen (0.2) E.U./dL Ur Leukocyte Esterase (NEGATIVE) Urine RBC (0-5/HPF) Urine WBC (0-5/HPF) Ur Squamous Epith Cells (0-5/HPF) Urine Bacteria (None) Urine Mucus (Negative) Ur Culture Indicated? Vol Urine Centrifuged Point of care testing: Point of Care Testing Glucose POC [address] scan - abdomen/pelvis: Radiologist's Impression: PROCEDURE: CT ABDOMEN PELVIS W CON INDICATIONS: belly pain, hypotension TECHNIQUE: After the administration of intravenous contrast, axial sections acquired from the lung bases to the pubic symphysis. Coronal and sagittal reformats were performed. For radiation dose reduction, the following was used: automated exposure control, adjustment of mA and/or kV according to patient size. COMPARISON: [facility], CT, CT ABDOMEN PELVIS WITH CONTRAST, 02/01/2024, 0:20. FINDINGS: Image quality: Diagnostic. Lower Chest: No significant findings. ABDOMEN: Liver: No solid mass. Gallbladder: Distended gallbladder with mild wall thickening. No inflammatory change adjacent to the gallbladder. Biliary ducts: Interval development of biliary ductal dilatation involving the extrahepatic duct and central intrahepatic ducts with abrupt cutoff at the level of the head of the pancreas. Common duct measures up to 9 mm. Pancreas: No ductal dilation. Spleen: Size is within normal limits. Adrenal Glands: No adrenal nodules. Kidneys and Ureters: No hydronephrosis. No solid mass. No complex renal cystic lesion which requires follow up. Stomach and Bowel: Normal colonic caliber, without significant wall thickening. Peritoneum: No abnormal intraperitoneal fluid. No free air. Ventral Wall: No significant ventral hernia. There is an extensive process in the anterior subcutaneous fat in which there is soft tissue density with developing calcifications which is progressed from the previous study. It most likely represents injection granulomata. Abdominal Nodes: No retroperitoneal or mesenteric adenopathy by size criteria. Vessels: Aorta and inferior vena cava are normal in size. Extensive vascular calcifications are in a pattern which suggest probable longstanding diabetes. PELVIS: Pelvic Organs: Unremarkable. Bladder: No bladder wall thickening, accounting for underdistention. Pelvic Nodes: No enlarged lymph nodes. Miscellaneous: No inguinal hernias are seen. Bones: No aggressive osseous abnormality. IMPRESSION: 1. Acute appendicitis. 2. Extensive, progressive changes in the anterior subcutaneous fat with developing soft tissue density and calcifications suggesting extensive injection granulomata. 3. Findings suggests that there is likely longstanding diabetes. The likely injection granulomata would be secondary to subcutaneous injection of medications. 4. Development of gallbladder dilatation with mild wall thickening and development of biliary ductal dilatation. Suspect possible common duct stone. Comments: Recommend urgent surgical consult for treatment of acute appendicitis. The likely injection granulomata may make it difficult to place laparoscopy ports. This should be understood at the time of surgery. Additionally, findings suggest the possibility of a common duct stone. Recommend nonemergent MRCP. Comment: Findings were discussed with Dr. Mayo on 04/19/2025 at 1654 hours Dictated by: Jamey Walker M.D. on 04/19/2025 at 16:51 Approved by: Jamey Walker M.D. on 04/19/2025 at 17:03 Chest x-ray: Radiologist's Impression: PROCEDURE: XR CHEST 1V INDICATIONS: sepsis abd pain TECHNIQUE: One view of the chest was acquired. COMPARISON: None. FINDINGS: Surgical changes and devices: Sternal wires. Lungs and pleura: Lungs are clear. No pleural effusions or pneumothorax. Mediastinum: Mediastinal contours appear normal. Heart size is normal. Bones and chest wall: No suspicious bony lesions. Overlying soft tissues appear unremarkable. IMPRESSION: No acute pulmonary process. Dictated by: Mily Amado M.D. on 04/19/2025 at 15:31 Approved by: Mily Amado M.D. on 04/19/2025 at 15:31 ECG Data Interpretation: EKG reveals normal sinus rhythm with a rate of 82, QTC 420. T-wave inversion aVL. No prior comparisons. MDM Narrative Medical decision making narrative: 60-year-old female, [place] speaking, with a past medical history of insulin-dependent T2DM, HTN, HLD, neuropathy, prior valve repair who presents to the emergency department with her for back and abdominal pain x4 days. Differential diagnosis includes but is not limited to surgical abdomen, appendicitis, cholecystitis, diverticulitis, perforation, aortic dissection, UTI, nephrolithiasis, ureterolithiasis, etc. On exam the patient is in acute distress secondary to lower abdominal pain. Reports that she has been having fevers as well. No chest pain or difficulty breathing. Blood pressure is low but equal in both arms, 101/49, 102/56. Her abdominal exam reveals diffuse tenderness worse in the lower quadrants, rebound and guarding. Discussed case immediately with the ED attending physician. Sepsis order set initiated in addition to Zosyn, 30 mL/kg fluids, fentanyl and Zofran. Point of care glucose is low, 63, amp of D50 ordered. Labs reveal elevated white blood cell count 12.3. Hemoglobin 14.5 hematocrit 43.7. Platelets are low at 51 which is chronic for the patient. Normal LFTs. Troponin negative. Urine without signs of infection. Chest x-ray reveals no acute pulmonary process. Abdomen and pelvis CT results were called and discussed with Dr. Mayo. They reveal acute appendicitis, significant injection granuloma. Development of gallbladder dilatation with mild wall thickening and development of biliary ductal dilatation, suspect possible common duct stone. Recommend urgent surgical consultation, nonemergent MRCP. Called and discussed case with general surgeon on-call, Dr. Deutsch, who will come in and see the patient. Patient's platelets are low, 51. 1815: Discussed case with heme Onc at [facility], Dr. Hickey. She recommends the patient having 1 unit of platelets running during surgery but that the patient has not necessarily need preop platelets. 1 unit of platelets can expect to raise overall platelet count 10 to 20. 1820: Gen surg, Dr. Deutsch, at the bedside. 1855: Dr. Deutsch will admit the patient and consult with the hospitalist. He will facilitate ordering of platelets as needed. Patient is stable for transfer to the floor at this time. NPO tonight, plan for surgery tomorrow. <Tito Rojas MD - Last Filed: 04/19/25 23:13> Lab Data Attestation: I reviewed the patient's lab results. Labs: Lab Results 04/19/25 04/19/25 04/19/25 Range/Units 14:27 14:44 15:05 WBC 12.3 H (4.5-11.0) X10^3/uL RBC 5.37 H (4.0-5.2) X10^6/uL Hgb 14.5 (12.0-16.0) g/dL Hct 43.7 (36-46) % MCV 81.4 (80-100) fL MCH 27.0 (26-34) PG MCHC 33.2 (30-36) % RDW 14.0 (11.6-14.8) % Plt Count 51 L (150-400) X10^3/uL Neut % (Auto) 79.4 H (50-75) % Lymph % (Auto) 11.7 L (25-40) % [place] % (Auto) 7.7 (3-14) % Eos % (Auto) 0.5 L (2-4) % Baso % (Auto) 0.7 (0-2) % Neut # (Auto) 9800 H (1569-1222) /uL Lymph # (Auto) 1400 (8620-9591) /uL [place] # (Auto) 900 (0-900) /uL Eos # (Auto) 100 (0-450) /uL Baso # (Auto) 100 (0-100) /uL PT 11.2 (9.4-12.5) SECONDS INR 1.0 (0.9-1.3) APTT 31 (25.1-36.5) SECONDS Sodium 139 (137-145) mmol/L Potassium 4.0 (3.4-5.1) mmol/L Chloride 106 (98-107) mmol/L Carbon Dioxide 24 (22-32) mmol/L BUN 15 (7-17) mg/dL Creatinine 0.75 (0.52-1.04) mg/dL Estimated GFR > 60 (>60) mL/min BUN/Creatinine Ratio 20.0 (6-22) Glucose 63 L (70-99) mg/dL POC Whole Bld Glucose 62 L (70-99) mg/dL Lactate 1.1 (0.7-2.1) mmol/L Calcium 9.3 (8.4-10.2) mg/dL Total Bilirubin 0.8 (0.2-1.3) mg/dL AST 33 (14-36) IU/L ALT 22 (<35) IU/L Alkaline Phosphatase 86 (38-126) U/L Troponin I 0.013 (0.01-0.034) ng/mL Total Protein 7.3 (6.3-8.2) g/dL Albumin 4.1 (3.5-5.0) g/dL Globulin 3.2 (1.7-4.1) g/dL Albumin/Globulin Ratio 1.3 (1.0-2.8) Procalcitonin 0.095 (<0.5) ng/mL Urine Color Yellow Urine Appearance Clear Urine pH 7.0 (4.5-8.0) Ur Specific Lima 1.015 (1.000-1.035) Urine Protein Negative (Negative) Urine Glucose (UA) 3+ H (Negative) g/dL Urine Ketones Negative (NEGATIVE) Urine Occult Blood Negative (Negative) Urine Nitrate Negative (Negative) Urine Bilirubin Negative (NEGATIVE) Urine Urobilinogen 1.0 (0.2) E.U./dL Ur Leukocyte Esterase Negative (NEGATIVE) Urine RBC None seen (0-5/HPF) Urine WBC None seen (0-5/HPF) Ur Squamous Epith Cells 0-1 /hpf (0-5/HPF) Urine Bacteria None seen (None) Urine Mucus 1+ H (Negative) Ur Culture Indicated? Cult not indicated Vol Urine Centrifuged 10ml (spun) 04/19/25 04/19/25 Range/Units 16:35 19:19 WBC (4.5-11.0) X10^3/uL RBC (4.0-5.2) X10^6/uL Hgb (12.0-16.0) g/dL Hct (36-46) % MCV (80-100) fL MCH (26-34) PG MCHC (30-36) % RDW (11.6-14.8) % Plt Count (150-400) X10^3/uL Neut % (Auto) (50-75) % Lymph % (Auto) (25-40) % [place] % (Auto) (3-14) % Eos % (Auto) (2-4) % Baso % (Auto) (0-2) % Neut # (Auto) (9814-2397) /uL Lymph # (Auto) (2226-0028) /uL [place] # (Auto) (0-900) /uL Eos # (Auto) (0-450) /uL Baso # (Auto) (0-100) /uL PT (9.4-12.5) SECONDS INR (0.9-1.3) APTT (25.1-36.5) SECONDS Sodium (137-145) mmol/L Potassium (3.4-5.1) mmol/L Chloride (98-107) mmol/L Carbon Dioxide (22-32) mmol/L BUN (7-17) mg/dL Creatinine (0.52-1.04) mg/dL Estimated GFR (>60) mL/min BUN/Creatinine Ratio (6-22) Glucose (70-99) mg/dL POC Whole Bld Glucose 162 H D 72 (70-99) mg/dL Lactate (0.7-2.1) mmol/L Calcium (8.4-10.2) mg/dL Total Bilirubin (0.2-1.3) mg/dL AST (14-36) IU/L ALT (<35) IU/L Alkaline Phosphatase (38-126) U/L Troponin I (0.01-0.034) ng/mL Total Protein (6.3-8.2) g/dL Albumin (3.5-5.0) g/dL Globulin (1.7-4.1) g/dL Albumin/Globulin Ratio (1.0-2.8) Procalcitonin (<0.5) ng/mL Urine Color Urine Appearance Urine pH (4.5-8.0) Ur Specific [place] (1.000-1.035) Urine Protein (Negative) Urine Glucose (UA) (Negative) g/dL Urine Ketones (NEGATIVE) Urine Occult Blood (Negative) Urine Nitrate (Negative) Urine Bilirubin (NEGATIVE) Urine Urobilinogen (0.2) E.U./dL Ur Leukocyte Esterase (NEGATIVE) Urine RBC (0-5/HPF) Urine WBC (0-5/HPF) Ur Squamous Epith Cells (0-5/HPF) Urine Bacteria (None) Urine Mucus (Negative) Ur Culture Indicated? Vol Urine Centrifuged Point of care testing: Point of Care Testing Glucose POC 72 ECG Data Attestation: I personally reviewed and interpreted this ECG as follows: (Sinus rhythm. Septal Q-waves with poor R-wave progression. Lateral T-wave flattening. Rate 82.) [facility] Narrative Medical decision making narrative: 60-year-old female, Tanzanian speaking, with a past medical history of insulin-dependent T2DM, HTN, HLD, neuropathy, prior valve repair who presents to the emergency department with her for back and abdominal pain x4 days. Differential diagnosis includes but is not limited to surgical abdomen, appendicitis, cholecystitis, diverticulitis, perforation, aortic dissection, UTI, nephrolithiasis, ureterolithiasis, etc. On exam the patient is in acute distress secondary to lower abdominal pain. Reports that she has been having fevers as well. No chest pain or difficulty breathing. Blood pressure is low but equal in both arms, 101/49, 102/56. Her abdominal exam reveals diffuse tenderness worse in the lower quadrants, rebound and guarding. Discussed case immediately with the ED attending physician. Sepsis order set initiated in addition to Zosyn, 30 mL/kg fluids, fentanyl and Zofran. Point of care glucose is low, 63, amp of D50 ordered. Labs reveal elevated white blood cell count 12.3. Hemoglobin 14.5 hematocrit 43.7. Platelets are low at 51 which is chronic for the patient. Normal LFTs. Troponin negative. Urine without signs of infection. Chest x-ray reveals no acute pulmonary process. Abdomen and pelvis CT results were called and discussed with Dr. Mayo. They reveal acute appendicitis, significant injection granuloma. Development of gallbladder dilatation with mild wall thickening and development of biliary ductal dilatation, suspect possible common duct stone. Recommend urgent surgical consultation, nonemergent MRCP. Called and discussed case with general surgeon on-call, Dr. Deutsch, who will come in and see the patient. Patient's platelets are low, 51. 1815: Discussed case with heme Onc at [facility], Dr. Hickey. She recommends the patient having 1 unit of platelets running during surgery but that the patient has not necessarily need preop platelets. 1 unit of platelets can expect to raise overall platelet count 10 to 20. 1820: Gen surg, Dr. Deutsch, at the bedside. 1855: Dr. Deutsch will admit the patient and consult with the hospitalist. He will facilitate ordering of platelets as needed. Patient is stable for transfer to the floor at this time. NPO tonight, plan for surgery tomorrow. I discussed this patient's CT scan findings with the radiologist and with HEATHER Schuster. We discussed the patient's case together and surgical consult. I was available for further consult and evaluation of the patient during the patient's stay here in the ER. Discharge Plan Departure Patient Disposition: Admitted to Surgery Clinical Impression: Thrombocytopenia Acute appendicitis Qualifiers: Acute appendicitis type: unspecified acute appendicitis type Qualified Code(s): K35.80 - Unspecified acute appendicitis Admit Date/Time: 04/19/25 19:54 Admit Provider: Angel Mendez
--- NOTE | 2025-04-19 14:34 | DI.CT.S_ITS ---
PROCEDURE: CT ABDOMEN PELVIS W CON INDICATIONS: belly pain, hypotension TECHNIQUE: After the administration of intravenous contrast, axial sections acquired from the lung bases to the pubic symphysis. Coronal and sagittal reformats were performed. For radiation dose reduction, the following was used: automated exposure control, adjustment of mA and/or kV according to patient size. COMPARISON: [facility], CT, CT ABDOMEN PELVIS WITH CONTRAST, 02/01/2024, 0:20. FINDINGS: Image quality: Diagnostic. Lower Chest: No significant findings. ABDOMEN: Liver: No solid mass. Gallbladder: Distended gallbladder with mild wall thickening. No inflammatory change adjacent to the gallbladder. Biliary ducts: Interval development of biliary ductal dilatation involving the extrahepatic duct and central intrahepatic ducts with abrupt cutoff at the level of the head of the pancreas. Common duct measures up to 9 mm. Pancreas: No ductal dilation. Spleen: Size is within normal limits. Adrenal Glands: No adrenal nodules. Kidneys and Ureters: No hydronephrosis. No solid mass. No complex renal cystic lesion which requires follow up. Stomach and Bowel: Normal colonic caliber, without significant wall thickening. Peritoneum: No abnormal intraperitoneal fluid. No free air. Ventral Wall: No significant ventral hernia. There is an extensive process in the anterior subcutaneous fat in which there is soft tissue density with developing calcifications which is progressed from the previous study. It most likely represents injection granulomata. Abdominal Nodes: No retroperitoneal or mesenteric adenopathy by size criteria. Vessels: Aorta and inferior vena cava are normal in size. Extensive vascular calcifications are in a pattern which suggest probable longstanding diabetes. PELVIS: Pelvic Organs: Unremarkable. Bladder: No bladder wall thickening, accounting for underdistention. Pelvic Nodes: No enlarged lymph nodes. Miscellaneous: No inguinal hernias are seen. Bones: No aggressive osseous abnormality. IMPRESSION: 1. Acute appendicitis. 2. Extensive, progressive changes in the anterior subcutaneous fat with developing soft tissue density and calcifications suggesting extensive injection granulomata. 3. Findings suggests that there is likely longstanding diabetes. The likely injection granulomata would be secondary to subcutaneous injection of medications. 4. Development of gallbladder dilatation with mild wall thickening and development of biliary ductal dilatation. Suspect possible common duct stone. Comments: Recommend urgent surgical consult for treatment of acute appendicitis. The likely injection granulomata may make it difficult to place laparoscopy ports. This should be understood at the time of surgery. Additionally, findings suggest the possibility of a common duct stone. Recommend nonemergent MRCP. Comment: Findings were discussed with Dr. Mayo on 04/19/2025 at 1654 hours Dictated by: Jamey Walker M.D. on 04/19/2025 at 16:51 Approved by: Jamey Walker M.D. on 04/19/2025 at 17:03
--- NOTE | 2025-04-19 14:34 | EKG_ITS ---
[address] [address] Test Date: 2025-04-19 Pat Name: Liz Chowdhury Department: Room: Gender: Female Tooling Supervisor: sena : 1965 Requested By: Order Number: [id number] Reading MD: Colton Marcial MD Measurements Intervals [place] Rate: 82 P: 40 IL: 166 QRS: -23 QRSD: 72 T: 106 QT: 360 QTc: 420 Interpretive Statements Normal sinus rhythm Septal infarct , age undetermined T wave abnormality, consider lateral ischemia Electronically Signed On 04-20-2025 10:17:32 PST by Colton Marcial MD
--- NOTE | 2025-04-19 14:57 | DI.RAD.S_ITS ---
PROCEDURE: XR CHEST 1V INDICATIONS: sepsis abd pain TECHNIQUE: One view of the chest was acquired. COMPARISON: None. FINDINGS: Surgical changes and devices: Sternal wires. Lungs and pleura: Lungs are clear. No pleural effusions or pneumothorax. Mediastinum: Mediastinal contours appear normal. Heart size is normal. Bones and chest wall: No suspicious bony lesions. Overlying soft tissues appear unremarkable. IMPRESSION: No acute pulmonary process. Dictated by: Mily Amado M.D. on 04/19/2025 at 15:31 Approved by: Mily Amado M.D. on 04/19/2025 at 15:31
[2025-04-19 14:59] LABS: Appearance Urine UA CLEAR; Bilirubin Urine UA NEGATIVE (NEGATIVE); Color Urine UA YELLOW; Glucose Urine UA 3+ g/dL (Negative); Ketones Urine UA NEGATIVE (NEGATIVE); Leukocyte Esterase Urine UA NEGATIVE (NEGATIVE); Nitrite Urine UA NEGATIVE (Negative); Occult Blood Urine UA NEGATIVE (Negative); Protein Urine UA NEGATIVE (Negative); Specific Gravity Urine UA 1.015 (1.000-1.035); Urobilinogen Urine UA 1.0 E.U./dL (0.2)
[2025-04-19 15:00] LABS: pH Urine UA 7.0 (4.5-8.0)
[2025-04-19 15:06] LABS: Culture Indicated Urine Cult Not Indicated
[2025-04-19] MEDS: SODIUM CHLORIDE 0.9% 1,434 ML 956 ML IV (15:07)
[2025-04-19] MEDS: ONDANSETRON 4 MG/2 ML INJ IV (15:09)
[2025-04-19] MEDS: PIPERACILLIN/TAZO 4.5 GM in SODIUM CHLORIDE 0.9% 100 ML IV ×2 (15:11→23:37)
[2025-04-19 15:23] LABS: Add Manual Diff / Slide Review NO; Hematocrit 43.7 % (36-46); Hemoglobin 14.5 g/dL (12.0-16.0); Lymphocytes Absolute Auto 1400 /uL (1100-4500); Mean Corpuscular HGB Conc 33.2 % (30-36); Mean Corpuscular Hemoglobin 27.0 PG (26-34); Mean Corpuscular Volume 81.4 fL (80-100); Platelet Count 51 X10^3/uL (150-400)
[2025-04-19 15:34] LABS: INR 1.0 (0.9-1.3); Prothrombin Time 11.2 SECONDS (9.4-12.5)
[2025-04-19 15:37] LABS: PTT Partial Thromboplastin Tim 31 SECONDS (25.1-36.5)
[2025-04-19 15:40] LABS: Alanine Aminotransferase 22 IU/L (<35); Albumin 4.1 g/dL (3.5-5.0); Albumin Globulin Ratio 1.3 (1.0-2.8); Alkaline Phosphatase 86 U/L (38-126); Blood Urea Nitrogen 15 mg/dL (7-17); Calcium 9.3 mg/dL (8.4-10.2); Carbon Dioxide 24 mmol/L (22-32); Chloride 106 mmol/L (98-107); Estimated Glomerular Filt Rate > 60 mL/min (>60); Globulin 3.2 g/dL (1.7-4.1); Glucose 63 mg/dL (70-99); HEMOLYSIS 19 (0-50); Lactate (Lactic Acid) 1.1 mmol/L (0.7-2.1); Potassium 4.0 mmol/L (3.4-5.1); Sodium 139 mmol/L (137-145); Total Protein 7.3 g/dL (6.3-8.2)
[2025-04-19] MEDS: fentaNYL 100 MCG/2 ML INJ 25 MCG IV (15:50)
[2025-04-19 15:52] LABS: Troponin I 0.013 ng/mL (0.01-0.034)
[2025-04-19 15:57] LABS: Procalcitonin 0.095 ng/mL (<0.5)
[2025-04-19] MEDS: DEXTROSE 50 % IN WATER 25 GM/50 ML SYRINGE IV ×2 (16:02→19:29)
[2025-04-19] MEDS: fentaNYL 100 MCG/2 ML INJ 50 MCG IV ×2 (18:17→19:26)
[2025-04-19] MEDS: DEXTROSE 5%-0.9% NS 1,000 ML 125 ML IV (18:17)
--- NOTE | 2025-04-19 19:13 | PM.HP.IH.1 ---
History of Present Illness History of Present Illness Date Patient Seen: 04/19/25 Chief complaint: back/abd px 4 days Narrative: The patient is a 58-year-old female, with type 2 diabetes, hyperlipidemia, hypertension presents with right lower quadrant abdominal pain and back pain. The patient has had back pain for the past 4 days. She has a history of chronic back pain which occurs intermittently and is on gabapentin as well as hydroxyzine for spasms. This latest episode is a lasted for box 4 days. She also has noted the onset of epigastric as well as right lower quadrant abdominal pain. The pain is sharp and is exacerbated by coughing and movement. She also complains that the pain increases with your urination and passing flatus. She speaks only Turkmen and I could not get a feel for whether she has vomited or not. She does admit that she is not hungry and her last meal was yesterday in the afternoon. She also describes fevers and chills. PFSH Medical History Humeral fracture Social History household members: spouse and family Smoking Status: Current every day smoker Meds Home Medications and Allergies Home Medications ?Medication ?Instructions ?Recorded ?Confirmed ?Type gabapentin 100 mg capsule 100 mg PO TID 11/30/19 11/30/19 History hydroxyzine pamoate 25 mg capsule 25 mg PO Q6HR PRN Spasms #30 caps 11/30/19 Rx insulin glargine 100 unit/mL (3 60 unit SUBCUT BEDTIME 11/30/19 11/30/19 History mL) subcutaneous pen (Lantus Solostar U-100 Insulin) insulin lispro 100 unit/mL 35 unit SUBCUT DAILY 11/30/19 11/30/19 History subcutaneous pen (Humalog KwikPen (U-100) Insulin) oxycodone 5 mg tablet 5 mg PO Q4HR PRN Pain, Moderate 11/30/19 Rx (4-6) #40 tabs Allergies Allergy/AdvReac Type Severity Reaction Status Date / Time No Known Drug Allergies Allergy Verified 04/19/25 14:17 Review of Systems Review of Systems ROS: Yes All systems reviewed with the patient and are negative except as otherwise documented Exam Vital Signs (past 8 hours): - 04/19/25 14:17 04/19/25 14:48 04/19/25 14:49 Temperature 99.3 F Pulse Rate 88 82 83 Respiratory Rate 16 Blood Pressure 90/52 L 101/49 L Pulse Oximetry 98 99 99 Oxygen Delivery Method Room Air Room Air 04/19/25 14:50 04/19/25 15:00 04/19/25 15:05 Temperature Pulse Rate 83 83 82 Respiratory Rate Blood Pressure 102/56 L Pulse Oximetry 99 98 98 Oxygen Delivery Method Room Air 04/19/25 15:05 04/19/25 15:30 04/19/25 16:02 Temperature Pulse Rate 77 80 Respiratory Rate Blood Pressure 96/50 L Pulse Oximetry 99 99 Oxygen Delivery Method 04/19/25 16:03 04/19/25 16:03 04/19/25 16:30 Temperature Pulse Rate 80 90 Respiratory Rate Blood Pressure 97/49 L Pulse Oximetry 100 97 Oxygen Delivery Method 04/19/25 16:30 04/19/25 17:00 04/19/25 17:00 Temperature Pulse Rate 82 Respiratory Rate Blood Pressure 112/54 L 93/50 L Pulse Oximetry 99 Oxygen Delivery Method 04/19/25 17:30 04/19/25 17:30 Temperature Pulse Rate 81 Respiratory Rate 19 Blood Pressure 105/53 L Pulse Oximetry 100 Oxygen Delivery Method Oxygen Delivery Method Room Air Narrative Exam Narrative: Patient appears to be edentulous. Neck is supple. Lungs are clear to auscultation bilaterally Cardiac reveals a regular rate and rhythm without murmurs rubs or gallops Abdomen is firm with a voluntary guarding with well-localized right lower quadrant tenderness. Patient has positive percussion tenderness. Bowel sounds are hypoactive. Extremities reveal full range of motion Neuro was grossly intact Objective Imaging CT scan - abdomen: My impression: [place] [address] CT Scan Report Signed Patient: Liz Jacobson MR#: [id number] : 1965 Acct:[id number] Age/Sex: 60 / F Date of Service: 04/19/25 Loc: ED Accession Number: [id number] Procedure: CT abdomen pelvis w con Ordering Provider: Marisabel Fitzpatrick D.O. PROCEDURE: CT ABDOMEN PELVIS W CON INDICATIONS: belly pain, hypotension TECHNIQUE: After the administration of intravenous contrast, axial sections acquired from the lung bases to the pubic symphysis. Coronal and sagittal reformats were performed. For radiation dose reduction, the following was used: automated exposure control, adjustment of mA and/or kV according to patient size. COMPARISON: [facility], CT, CT ABDOMEN PELVIS WITH CONTRAST, 02/01/2024, 0:20. FINDINGS: Image quality: Diagnostic. Lower Chest: No significant findings. ABDOMEN: Liver: No solid mass. Gallbladder: Distended gallbladder with mild wall thickening. No inflammatory change adjacent to the gallbladder. Biliary ducts: Interval development of biliary ductal dilatation involving the extrahepatic duct and central intrahepatic ducts with abrupt cutoff at the level of the head of the pancreas. Common duct measures up to 9 mm. Pancreas: No ductal dilation. Spleen: Size is within normal limits. Adrenal Glands: No adrenal nodules. Kidneys and Ureters: No hydronephrosis. No solid mass. No complex renal cystic lesion which requires follow up. Stomach and Bowel: Normal colonic caliber, without significant wall thickening. Peritoneum: No abnormal intraperitoneal fluid. No free air. Ventral Wall: No significant ventral hernia. There is an extensive process in the anterior subcutaneous fat in which there is soft tissue density with developing calcifications which is progressed from the previous study. It most likely represents injection granulomata. Abdominal Nodes: No retroperitoneal or mesenteric adenopathy by size criteria. Vessels: Aorta and inferior vena cava are normal in size. Extensive vascular calcifications are in a pattern which suggest probable longstanding diabetes. PELVIS: Pelvic Organs: Unremarkable. Bladder: No bladder wall thickening, accounting for underdistention. Pelvic Nodes: No enlarged lymph nodes. Miscellaneous: No inguinal hernias are seen. Bones: No aggressive osseous abnormality. IMPRESSION: 1. Acute appendicitis. 2. Extensive, progressive changes in the anterior subcutaneous fat with developing soft tissue density and calcifications suggesting extensive injection granulomata. 3. Findings suggests that there is likely longstanding diabetes. The likely injection granulomata would be secondary to subcutaneous injection of medications. 4. Development of gallbladder dilatation with mild wall thickening and development of biliary ductal dilatation. Suspect possible common duct stone. Comments: Recommend urgent surgical consult for treatment of acute appendicitis. The likely injection granulomata may make it difficult to place laparoscopy ports. This should be understood at the time of surgery. Additionally, findings suggest the possibility of a common duct stone. Recommend nonemergent MRCP. Comment: Findings were discussed with Dr. Mayo on 04/19/2025 at 1654 hours Dictated by: Jamey Walker M.D. on 04/19/2025 at 16:51 Approved by: Jamey Walker M.D. on 04/19/2025 at 17:03 Labs 04/19/25 15:05 04/19/25 15:05 Labs: Laboratory Results - last 24 hr 04/19/25 04/19/25 04/19/25 14:27 14:44 15:05 WBC 12.3 H RBC 5.37 H Hgb 14.5 Hct 43.7 MCV 81.4 MCH 27.0 MCHC 33.2 RDW 14.0 Plt Count 51 L Neut % (Auto) 79.4 H Lymph % (Auto) 11.7 L [place] % (Auto) 7.7 Eos % (Auto) 0.5 L Baso % (Auto) 0.7 Neut # (Auto) 9800 H Lymph # (Auto) 1400 [place] # (Auto) 900 Eos # (Auto) 100 Baso # (Auto) 100 PT 11.2 INR 1.0 APTT 31 Sodium 139 Potassium 4.0 Chloride 106 Carbon Dioxide 24 BUN 15 Creatinine 0.75 Estimated GFR > 60 BUN/Creatinine Ratio 20.0 Glucose 63 L POC Whole Bld Glucose 62 L Lactate 1.1 Calcium 9.3 Total Bilirubin 0.8 AST 33 ALT 22 Alkaline Phosphatase 86 Troponin I 0.013 Total Protein 7.3 Albumin 4.1 Globulin 3.2 Albumin/Globulin Ratio 1.3 Procalcitonin 0.095 Urine Color Yellow Urine Appearance Clear Urine pH 7.0 Ur Specific [place] 1.015 Urine Protein Negative Urine Glucose (UA) 3+ H Urine Ketones Negative Urine Occult Blood Negative Urine Nitrate Negative Urine Bilirubin Negative Urine Urobilinogen 1.0 Ur Leukocyte Esterase Negative Urine RBC None seen Urine WBC None seen Ur Squamous Epith Cells 0-1 /hpf Urine Bacteria None seen Urine Mucus 1+ H Ur Culture Indicated? Cult not indicated Vol Urine Centrifuged 10ml (spun) 04/19/25 16:35 WBC RBC Hgb Hct MCV MCH MCHC RDW Plt Count Neut % (Auto) Lymph % (Auto) [place] % (Auto) Eos % (Auto) Baso % (Auto) Neut # (Auto) Lymph # (Auto) [place] # (Auto) Eos # (Auto) Baso # (Auto) PT INR APTT Sodium Potassium Chloride Carbon Dioxide BUN Creatinine Estimated GFR BUN/Creatinine Ratio Glucose POC Whole Bld Glucose 162 H D Lactate Calcium Total Bilirubin AST ALT Alkaline Phosphatase Troponin I Total Protein Albumin Globulin Albumin/Globulin Ratio Procalcitonin Urine Color Urine Appearance Urine pH Ur Specific [place] Urine Protein Urine Glucose (UA) Urine Ketones Urine Occult Blood Urine Nitrate Urine Bilirubin Urine Urobilinogen Ur Leukocyte Esterase Urine RBC Urine WBC Ur Squamous Epith Cells Urine Bacteria Urine Mucus Ur Culture Indicated? Vol Urine Centrifuged Assessment & Plan Assessment and plan (1) Acute appendicitis: Qualifiers: Acute appendicitis type: unspecified acute appendicitis type Qualified Code(s): K35.80 - Unspecified acute appendicitis Status: Acute (2) Thrombocytopenia: Status: Acute Plan I had a long discussion with the patient reference to her options for treatment of her appendicitis. Using an language interpreter, we discussed antibiotic therapy and his potential for success and failure. We discussed surgery to include indications, planned procedure, and inherent risks. The patient appeared to understand and wishes to proceed as outlined. I will order a bag of platelets to be available for surgery and plan a surgical procedure for tomorrow. Repeat a CBC in the morning prior to surgery. The patient will be NPO tonight. She will be given Zosyn for g IV q.8 hours until surgery. I have asked the hospitalist service to follow the patient for her comorbidities, most importantly her diabetes. Time-Based Coding :: [TOTAL MINUTES] spent with patient and on the chart (including review of chart, obtaining history, exam, reviewing outside data, placing orders, documenting exam and treatment plan, and counseling patient) on [DATE]. PROFEE Information Technology Technician Document charge(s): Yes
[2025-04-19] MEDS: DEXTROSE 5%-0.45NS W/KCL 20MEQ 1,000 ML 100 MEQ IV (20:52)
[2025-04-20] VITALS (17 sets, daily range): BP systolic 76–136; BP diastolic 38–64; PULSE 61–101; RESP 16–21; TEMP 36.3–37.1; O2SAT 89–99
--- NOTE | 2025-04-20 | PATH_ITS ---
[facility] Accession Number: [id number] No. of containers..01 Tissue . 01 Material submitted: . appendix - APPENDIX . 01 Diagnosis: APPENDIX, APPENDECTOMY: Acute suppurative appendicitis and acute serositis. Negative for malignancy. MRV 04/24/2025 1838 Local . 01 Electronically signed: . Zeke Barone MD, Pathologist NPI- [id number] . 01 Gross description: . Received in formalin with two patient identifiers and appendix, is a 5.5 cm long by 0.5 to 1.1 cm diameter intact appendix. The stapled proximal margin is inked blue. The serosa is hawk-brown and hemorrhagic with fibrinous exudate. The wall is dusky and hemorrhagic, 0.3 to 0.5 cm thick. No perforations are grossly identified. No masses or lesions are grossly identified. Fecaliths are not present. Leak Hunter sections with proximal margin and bisected tip are submitted in cassette A1. ([id number]) /SYKE 04/23/2025 2100 Local . 01 Pathologist provided ICD-10: K35.80 . 01 CPT . 688786 Specimen Comment: A courtesy copy of this report has been sent to [facility] Pathology Performed at: [address] [facility], [place], [place] [id number] MD Bart Shoemaker MD Phone: [phone]
[2025-04-20] MEDS: SODIUM CHLORIDE 0.9% 1,000 ML 1000 ML IV (03:06)
[2025-04-20 04:56] LABS: Add Manual Diff / Slide Review NO; Hematocrit 36.9 % (36-46); Hemoglobin 12.3 g/dL (12.0-16.0); Lymphocytes Absolute Auto 1700 /uL (1100-4500); Mean Corpuscular HGB Conc 33.4 % (30-36); Mean Corpuscular Hemoglobin 27.5 PG (26-34); Mean Corpuscular Volume 82.5 fL (80-100); Platelet Count 37 X10^3/uL (150-400)
[2025-04-20 05:20] LABS: RBC Morphology Normal Morphology
[2025-04-20] MEDS: DEXTROSE 5%-0.45NS W/KCL 20MEQ 1,000 ML 100 MEQ IV (05:58)
--- NOTE | 2025-04-20 06:35 | PM.HP.1 ---
History of Present Illness History of Present Illness Date Patient Seen: 04/19/25 Time Patient Seen: 21:40 Chief complaint: back/abd px 4 days Narrative: 61-year-old Chinese-speaking male with past medical history of insulin-dependent diabetes, hypertension, hyperlipidemia, peripheral neuropathy and prior cardiac valve repair presents with abdominal pain. Per the patient's report the patient started to have lower abdominal pain that started 3 to 4 days ago. The patient also started to have subjective fever but denies any chills, nausea, vomiting, diarrhea, chest pain or shortness of breath. The patient states that his abdominal pain is right lower abdomen and radiates somewhat to his lower back. The patient denies any dysuria or diarrhea. In the emergency room, the patient patient's blood pressure was slightly low normal with systolic in the 90-1 100s. The patient was saturating well on room air. Glucose however was in the 60s and WBC was 12.3. Lactate was normal at 1.1. Other labs were relatively benign with negative troponin. The patient was given Zosyn. CT scan shows sign of acute appendicitis. General surgery was called to admit the patient for possible appendectomy. Medicine service was consulted due to multiple medical chronic condition that would need to be manage preop and postop. The patient was given D50 as well as D5. Also platelet was low at 51. PFSH Medical History Humeral fracture Social History household members: spouse and family Smoking Status: Current every day smoker alcohol intake: never Meds Home Medications and Allergies Home Medications ?Medication ?Instructions ?Recorded ?Confirmed ?Type gabapentin 100 mg capsule 300 mg PO TID 11/30/19 04/19/25 History insulin glargine 100 unit/mL (3 15 unit SUBCUT DAILY 11/30/19 04/19/25 History mL) subcutaneous pen (Lantus Solostar U-100 Insulin) insulin lispro 100 unit/mL 35 unit SUBCUT DAILY 11/30/19 04/19/25 History subcutaneous pen (Humalog KwikPen (U-100) Insulin) acetaminophen 325 mg tablet 650 mg PO Q6H pain 04/19/25 04/19/25 History (Tylenol) aspirin 81 mg capsule 81 mg PO DAILY 04/19/25 04/19/25 History atorvastatin 80 mg tablet 80 mg PO BEDTIME 04/19/25 04/19/25 History empagliflozin 10 mg tablet 10 mg PO DAILY 04/19/25 04/19/25 History (Jardiance) insulin degludec See Rx Instructions SUBCUT .COMPLEX 04/19/25 04/19/25 History lisinopril 2.5 mg tablet 2.5 mg PO DAILY 04/19/25 04/19/25 History metoprolol succinate 25 mg 25 mg PO DAILY 04/19/25 04/19/25 History tablet,extended release 24 hr semaglutide 0.25 mg or 0.5 mg (2 0.25 mg SUBCUT QWEEK 04/19/25 04/19/25 History mg/3 mL) subcutaneous pen injector (Ozempic) spironolactone 25 mg tablet 12.5 mg PO DAILY 04/19/25 04/19/25 History Allergies Allergy/AdvReac Type Severity Reaction Status Date / Time No Known Drug Allergies Allergy Verified 04/19/25 14:17 Review of Systems Review of Systems ROS: Yes All systems reviewed with the patient and are negative except as otherwise documented Exam Vital Signs (past 8 hours): - 04/20/25 02:00 04/20/25 06:05 Temperature 98.7 F Pulse Rate 76 74 Respiratory Rate 20 16 Blood Pressure 105/43 L 98/38 L Pulse Oximetry 97 97 Oxygen Flow Rate 0 0 Oxygen Delivery Method Room Air Oxygen Flow Rate 0 Narrative Exam Narrative: Physical Exam: GENERAL: The patient is not in any acute distressed. Awake and alert. HEENT: Nonicteric sclerae, PERRLA, EOMI. Oropharynx clear. Moist mucous membranes. Conjunctivae appear well perfused. HEART: Regular rate and rhythm without murmurs. No lower extremities edema. LUNGS: Clear to auscultation bilaterally. No wheezing, crackles or rhonchi ABDOMEN: Soft, positive bowel sounds,RUQ tenderness but no rebound. SKIN: No rash, no excessive bruising, petechiae, or purpura. NEUROLOGIC: AxO x 3. Cranial nerves II-XII intact without motor/sensory deficit. Objective Labs 04/20/25 04:40 04/19/25 15:05 Labs: Laboratory Results - last 24 hr 04/19/25 04/19/2504/19/25 14:27 14:44 15:05 WBC 12.3 H RBC 5.37 H Hgb 14.5 Hct 43.7 MCV 81.4 MCH 27.0 MCHC 33.2 RDW 14.0 Plt Count 51 L Neut % (Auto) 79.4 H Lymph % (Auto) 11.7 L Isabella % (Auto) 7.7 Eos % (Auto) 0.5 L Baso % (Auto) 0.7 Neut # (Auto) 9800 H Lymph # (Auto) 1400 Isabella # (Auto) 900 Eos # (Auto) 100 Baso # (Auto) 100 Platelet Estimate RBC Morphology PT 11.2 INR 1.0 APTT 31 Sodium 139 Potassium 4.0 Chloride 106 Carbon Dioxide 24 BUN 15 Creatinine 0.75 Estimated GFR > 60 BUN/Creatinine Ratio 20.0 Glucose 63 L POC Whole Bld Glucose 62 L Lactate 1.1 Calcium 9.3 Total Bilirubin 0.8 AST 33 ALT 22 Alkaline Phosphatase 86 Troponin I 0.013 Total Protein 7.3 Albumin 4.1 Globulin 3.2 Albumin/Globulin Ratio 1.3 Procalcitonin 0.095 Urine Color Yellow Urine Appearance Clear Urine pH 7.0 Ur Specific Dorothy 1.015 Urine Protein Negative Urine Glucose (UA) 3+ H Urine Ketones Negative Urine Occult Blood Negative Urine Nitrate Negative Urine Bilirubin Negative Urine Urobilinogen 1.0 Ur Leukocyte Esterase Negative Urine RBC None seen Urine WBC None seen Ur Squamous Epith Cells 0-1 /hpf Urine Bacteria None seen Urine Mucus 1+ H Ur Culture Indicated? Cult not indicated Vol Urine Centrifuged 10ml (spun) 04/19/25 04/19/25 04/20/25 16:35 19:19 00:29 WBC RBC Hgb Hct MCV MCH MCHC RDW Plt Count Neut % (Auto) Lymph % (Auto) Isabella % (Auto) Eos % (Auto) Baso % (Auto) Neut # (Auto) Lymph # (Auto) Isabella # (Auto) Eos # (Auto) Baso # (Auto) Platelet Estimate RBC Morphology PT INR APTT Sodium Potassium Chloride Carbon Dioxide BUN Creatinine Estimated GFR BUN/Creatinine Ratio Glucose POC Whole Bld Glucose 162 H D 72 97 Lactate Calcium Total Bilirubin AST ALT Alkaline Phosphatase Troponin I Total Protein Albumin Globulin Albumin/Globulin Ratio Procalcitonin Urine Color Urine Appearance Urine pH Ur Specific Dorothy Urine Protein Urine Glucose (UA) Urine Ketones Urine Occult Blood Urine Nitrate Urine Bilirubin Urine Urobilinogen Ur Leukocyte Esterase Urine RBC Urine WBC Ur Squamous Epith Cells Urine Bacteria Urine Mucus Ur Culture Indicated? Vol Urine Centrifuged 04/20/25 04/20/25 04:40 06:26 WBC 8.6 RBC 4.48 Hgb 12.3 Hct 36.9 MCV 82.5 MCH 27.5 MCHC 33.4 RDW 14.3 Plt Count 37 L Neut % (Auto) 69.8 Lymph % (Auto) 19.6 L Isabella % (Auto) 8.0 Eos % (Auto) 1.7 L Baso % (Auto) 0.9 Neut # (Auto) 6000 Lymph # (Auto) 1700 Isabella # (Auto) 700 Eos # (Auto) 100 Baso # (Auto) 100 Platelet Estimate Decreased on smear RBC Morphology Normal morphology PT INR APTT Sodium Potassium Chloride Carbon Dioxide BUN Creatinine Estimated GFR BUN/Creatinine Ratio Glucose POC Whole Bld Glucose 76 Lactate Calcium Total Bilirubin AST ALT Alkaline Phosphatase Troponin I Total Protein Albumin Globulin Albumin/Globulin Ratio Procalcitonin Urine Color Urine Appearance Urine pH Ur Specific Dorothy Urine Protein Urine Glucose (UA) Urine Ketones Urine Occult Blood Urine Nitrate Urine Bilirubin Urine Urobilinogen Ur Leukocyte Esterase Urine RBC Urine WBC Ur Squamous Epith Cells Urine Bacteria Urine Mucus Ur Culture Indicated? Vol Urine Centrifuged Assessment & Plan Assessment & Plan narrative: Acute appendicitis. General surgery is primary team and will defer all management to primary team. Patient is medically stable and cleared for surgery if needed. Insulin-dependent diabetes. No glucose was in the 160s on arrival to our ER. Hold all insulin and will monitor glucose. Patient glucose now in the 140s to 160 with D5 half NS and KCl. Hypertension. Hold all blood pressure medication as well as patient initial blood pressure was low normal. Continue IV fluid and monitor blood pressure closely. Hyperlipidemia. Resume home statin. Thrombocytopenia. Seems to be chronic. Hold ASA. No sign of bleeding. platelet now 51. Monitor for now. Peripheral neuropathy. Resume home gabapentin. DVT prophylaxis defer to primary team. Thank you for your consult and we will continue to monitor patient closely. Please call our daytime hospitalist for any questions or concerns Time-Based Coding :: [TOTAL MINUTES] spent with patient and on the chart (including review of chart, obtaining history, exam, reviewing outside data, placing orders, documenting exam and treatment plan, and counseling patient) on [DATE]. Quality VTE Deep Vein Thrombosis/Pulmonary Embolism Present on Admission: No
--- NOTE | 2025-04-20 08:34 | CM.DANOTE ---
Initial DCP Assessment Note. Review EMR. Independent. Payor:??[employer]? PCP: Summary & Plan:?60 y/o female arrived to ED via POV c/o abd pain. Admitted OBS. Dx. Acute Appy. Plan: OR, discharge when improved. Discharge Planning/Care Management CM Discharge Assessment Start: 04/19/25 21:36 Freq: Status: Active Protocol: Document 04/20/25 08:32 SM (Rec: 04/20/25 08:34 [id number]) Discharge Planning Assessment Assigned Discharge Dayan Wellington RN CM Deep Submergence Vehicle Crewmember Provider Dr. Mora Insurance Coordinated Care Advance Directives? No History Provided By Patient,Family Member,Medical Record Prior Living House Arrangements Household Members spouse,family Barriers to No Discharge Transportation family/friend Arrangement Referrals Initiated None needed Review Status In Process Please Provide Date 04/20/25 Initial DC Assessment Was Performed Next Review Type Continued Stay Review
[2025-04-20] MEDS: SODIUM CHLORIDE 0.9% 500 ML IV (08:45)
[2025-04-20] MEDS: PIPERACILLIN/TAZO 4.5 GM in SODIUM CHLORIDE 0.9% 100 ML IV ×2 (09:37→16:53)
--- NOTE | 2025-04-20 10:23 | PC.NURSE ---
Addendum entered by Marcy Bui RN 04/20/25 18:27: Patient down to [facility] for surgery about 1730, she will have her platelets done down there. BS was in the 80s. Addendum entered by Marcy Bui RN 04/20/25 14:46: Patient complained of 6/10 pain. One mg of iv dilaudid given and patient states that she is feeling better. She understands Australian and speaks very little. Her understands Australian and does speak some as well. She was having some pain to her r.lower quadrant. Patients platelets are here, awaiting for to see if he is gonna infuse them both down in surgery or we are going to start one up here. He states that he will get back to this RN. at bedside and supportive of . Original Note: Patient is alert and oriented x4, we placed a purewick so that she can void. Patients blood pressure to low to get up, down to 76/40. gave an order for a 500cc bolus of NS an this has been given. Patients blood pressure up to 110/46. She is lying supine and denies pain. She states that when she does void, she feels pain to her appendix area. Offered pain medication but patient refused. Patients blood pressure does run low in the past. Patient has a hx of double bypass in 2023. We are awaiting plan from surgery, and they will give her platelets down there, per regulator pin inserter report.
--- NOTE | 2025-04-20 11:33 | P.PN_ITS ---
Subjective Subjective Date Patient Seen: 04/20/25 Interval history: Patient is still complaining of pain. She has pain when she urinates also. Exam Vital Signs (past 8 hours): - 04/20/25 06:05 04/20/25 08:00 04/20/25 10:29 Temperature 98.7 F Pulse Rate 74 74 Respiratory Rate 16 16 Blood Pressure 98/38 L 76/40 L 110/46 L Pulse Oximetry 97 97 Oxygen Flow Rate 0 0 Oxygen Delivery Method Room Air Oxygen Flow Rate 0 Narrative Exam Narrative: Lungs clear to auscultation bilaterally Cardiac was regular rate and rhythm Abdomen reveals well-localized right lower quadrant tenderness with involuntary guarding and percussion tenderness. Objective Labs 04/20/25 04:40 04/19/25 15:05 Labs: Laboratory Results - last 24 hr 04/19/25 04/19/25 04/19/25 14:27 14:44 15:05 WBC 12.3 H RBC 5.37 H Hgb 14.5 Hct 43.7 MCV 81.4 MCH 27.0 MCHC 33.2 RDW 14.0 Plt Count 51 L Neut % (Auto) 79.4 H Lymph % (Auto) 11.7 L [place] % (Auto) 7.7 Eos % (Auto) 0.5 L Baso % (Auto) 0.7 Neut # (Auto) 9800 H Lymph # (Auto) 1400 [place] # (Auto) 900 Eos # (Auto) 100 Baso # (Auto) 100 Platelet Estimate RBC Morphology PT 11.2 INR 1.0 APTT 31 Sodium 139 Potassium 4.0 Chloride 106 Carbon Dioxide 24 BUN 15 Creatinine 0.75 Estimated GFR > 60 BUN/Creatinine Ratio 20.0 Glucose 63 L POC Whole Bld Glucose 62 L Lactate 1.1 Calcium 9.3 Total Bilirubin 0.8 AST 33 ALT 22 Alkaline Phosphatase 86 Troponin I 0.013 Total Protein 7.3 Albumin 4.1 Globulin 3.2 Albumin/Globulin Ratio 1.3 Procalcitonin 0.095 Urine Color Yellow Urine Appearance Clear Urine pH 7.0 Ur Specific B[place]soe 1.015 Urine Protein Negative Urine Glucose (UA) 3+ H Urine Ketones Negative Urine Occult Blood Negative Urine Nitrate Negative Urine Bilirubin Negative Urine Urobilinogen 1.0 Ur Leukocyte Esterase Negative Urine RBC None seen Urine WBC None seen Ur Squamous Epith Cells 0-1 /hpf Urine Bacteria None seen Urine Mucus 1+ H Ur Culture Indicated? Cult not indicated Vol Urine Centrifuged 10ml (spun) Blood Type 04/19/25 04/19/25 04/20/25 16:35 19:19 00:29 WBC RBC Hgb Hct MCV MCH MCHC RDW Plt Count Neut % (Auto) Lymph % (Auto) [place] % (Auto) Eos % (Auto) Baso % (Auto) Neut # (Auto) Lymph # (Auto) [place] # (Auto) Eos # (Auto) Baso # (Auto) Platelet Estimate RBC Morphology PT INR APTT Sodium Potassium Chloride Carbon Dioxide BUN Creatinine Estimated GFR BUN/Creatinine Ratio Glucose POC Whole Bld Glucose 162 H D 72 97 Lactate Calcium Total Bilirubin AST ALT Alkaline Phosphatase Troponin I Total Protein Albumin Globulin Albumin/Globulin Ratio Procalcitonin Urine Color Urine Appearance Urine pH Ur Specific B[place] Urine Protein Urine Glucose (UA) Urine Ketones Urine Occult Blood Urine Nitrate Urine Bilirubin Urine Urobilinogen Ur Leukocyte Esterase Urine RBC Urine WBC Ur Squamous Epith Cells Urine Bacteria Urine Mucus Ur Culture Indicated? Vol Urine Centrifuged Blood Type 04/20/25 04/20/25 04:40 06:26 WBC 8.6 RBC 4.48 Hgb 12.3 Hct 36.9 MCV 82.5 MCH 27.5 MCHC 33.4 RDW 14.3 Plt Count 37 L Neut % (Auto) 69.8 Lymph % (Auto) 19.6 L [place] % (Auto) 8.0 Eos % (Auto) 1.7 L Baso % (Auto) 0.9 Neut # (Auto) 6000 Lymph # (Auto) 1700 [place] # (Auto) 700 Eos # (Auto) 100 Baso # (Auto) 100 Platelet Estimate Decreased on smear RBC Morphology Normal morphology PT INR APTT Sodium Potassium Chloride Carbon Dioxide BUN Creatinine Estimated GFR BUN/Creatinine Ratio Glucose POC Whole Bld Glucose 76 Lactate Calcium Total Bilirubin AST ALT Alkaline Phosphatase Troponin I Total Protein Albumin Globulin Albumin/Globulin Ratio Procalcitonin Urine Color Urine Appearance Urine pH Ur Specific B[place] Urine Protein Urine Glucose (UA) Urine Ketones Urine Occult Blood Urine Nitrate Urine Bilirubin Urine Urobilinogen Ur Leukocyte Esterase Urine RBC Urine WBC Ur Squamous Epith Cells Urine Bacteria Urine Mucus Ur Culture Indicated? Vol Urine Centrifuged Blood Type A Positive [facility] Medical History Humeral fracture Social History household members: spouse and family Smoking Status: Current every day smoker alcohol intake: never Assessment & Plan Assessment and plan (1) Thrombocytopenia: Status: Acute (2) Acute appendicitis: Qualifiers: Acute appendicitis type: unspecified acute appendicitis type Qualified Code(s): K35.80 - Unspecified acute appendicitis Status: Acute (3) Diabetes mellitus: Status: Acute Plan We are still waiting on platelets to come from a larger center. Once we have the platelets available, I will probably give him 1 bag preoperatively and round the 2nd bag intraoperatively as her platelet count has dropped from yesterday evening. Still plan on a laparoscopic appendectomy today Time-Based Coding :: [TOTAL MINUTES] spent with patient and on the chart (including review of chart, obtaining history, exam, reviewing outside data, placing orders, documenting exam and treatment plan, and counseling patient) on [DATE]. Quality VTE Deep Vein Thrombosis/Pulmonary Embolism Present on Admission: No [facility] PROFEE Speeder Machine Operator Document charge(s): Yes
--- NOTE | 2025-04-20 17:40 | P.PN_ITS ---
Subjective Subjective Interval history: 60-year-old female with insulin dependent diabetes mellitus with peripheral neuropathy, hypertension, hyperlipidemia, coronary artery disease status post CABG, and chronic thrombocytopenia who was admitted overnight with acute appendicitis. History is obtained using formal ribbon lap machine tender. Her is also at bedside She reports she was 1st told she had thrombocytopenia when she was living in [place] about 30 years ago. She states she did have some blood work done but was never told what the etiology of her low platelets were. She states when she was with her eldest son LEs were low again. Her eldest son also has had difficulty with thrombocytopenia. She states he was followed by Hematology when he was 2 years old and continues to follow regularly but stopped going about 10 years ago because he no longer wished to see doctors. She states he has difficulties with bleeding gums and difficulty with stopping bleeding when he gets cut. She states she herself has never had that difficulty. She states she did have surgery about 14 months ago with a bypass graft on her heart down at [facility]. She had had a SD and when they were assessing her for surgery they found she had persistent thrombocytopenia. After surgery they recommended follow-up with Hematology. She states she has seen a balance wheel screw hole driller as recently as 3 weeks ago in [place]. She was told by her balance wheel screw hole driller in [place] that she should have transfusions if her platelets get below 55. With regard to her appendicitis, she states she has pain when she urinates due to needing to push to empty her bladder. Otherwise she states her pain is reasonably well controlled. No nausea. Last BM was 2 days ago. Exam Vital Signs (past 8 hours): - 04/20/25 10:29 04/20/25 12:00 04/20/25 16:47 Temperature 98.4 F 97.7 F Pulse Rate 73 65 Respiratory Rate 16 16 Blood Pressure 110/46 L 98/43 L 117/46 L Pulse Oximetry 97 96 Oxygen Flow Rate 0 0 Oxygen Delivery Method Room Air Oxygen Flow Rate 0 Narrative Exam Narrative: GEN: Very pleasant middle-aged female, Alert and oriented x 3, NAD HEENT:NC, Face symmetric CHEST: Respiratory excursions symmetric, CTAB CV: RRR, no M/R/G ABD: Soft, obese, tender in the right lower quadrant/ND, BT present in all 4 quadrants, no organomegaly or masses EXTR: warm, well perfused, no C/C/E SKIN: warm and dry, no rash NEURO: Alert and oriented x 3, nonfocal Objective Labs 04/20/25 04:40 04/19/25 15:05 Labs: Laboratory Results - last 24 hr 04/19/25 04/20/25 04/20/25 19:19 00:29 04:40 WBC 8.6 RBC 4.48 Hgb 12.3 Hct 36.9 MCV 82.5 MCH 27.5 MCHC 33.4 RDW 14.3 Plt Count 37 L Neut % (Auto) 69.8 Lymph % (Auto) 19.6 L Colbert % (Auto) 8.0 Eos % (Auto) 1.7 L Baso % (Auto) 0.9 Neut # (Auto) 6000 Lymph # (Auto) 1700 [place]bert # (Auto) 700 Eos # (Auto) 100 Baso # (Auto) 100 Platelet Estimate Decreased on smear RBC Morphology Normal morphology POC Whole Bld Glucose 72 97 Blood Type A Positive 04/20/25 04/20/25 06:26 12:07 WBC RBC Hgb Hct MCV MCH MCHC RDW Plt Count Neut % (Auto) Lymph % (Auto) Colbert % (Auto) Eos % (Auto) Baso % (Auto) Neut # (Auto) Lymph # (Auto) Colbert # (Auto) Eos # (Auto) Baso # (Auto) Platelet Estimate RBC Morphology POC Whole Bld Glucose 76 88 Blood Type [facility] Medical History Humeral fracture Social History household members: spouse and family Smoking Status: Current every day smoker alcohol intake: never Assessment & Plan Assessment & Plan narrative: 1. Acute appendicitis Appreciate management per General surgery. Plans for her to proceed with surgery once platelet transfusion can be accomplished. 2. Chronic thrombocytopenia Platelet count appears to been fairly consistent with baseline on admission at 51. Today it did drop down to 37. Await platelet arrival for transfusion. 3. Coronary artery disease status post bypass graft in 2023 Echocardiogram in August of 2024 revealed a mild cardiomyopathy with an EF of 45- 50% and slight hypokinesis of the inferolateral segment. Grade 2 diastolic dysfunction. No significant valvular abnormalities. No obvious intracardiac shunts. No intracardiac masses or thrombi. Will plan to resume her beta humera, aspirin, statin, LUCILA inhibitor and Jardiance post appendectomy. 4. Insulin-dependent diabetes mellitus Blood sugars have ranged from 72-88 overnight and through the day today. Continue close monitoring. 5. Hypertension Blood pressures are normotensive. As noted, will plan to resume her usual medications postoperatively. Code status Full Prophylaxis No chemical prophylaxis in the setting of thrombocytopenia and pending surgery Disposition I have requested records from [facility] to determine what workup has previously been done. Anticipate she will be able to discharge home post surgery. Time-Based Coding :: [TOTAL MINUTES] spent with patient and on the chart (including review of chart, obtaining history, exam, reviewing outside data, placing orders, documenting exam and treatment plan, and counseling patient) on [DATE]. Quality VTE Deep Vein Thrombosis/Pulmonary Embolism Present on Admission: No
[2025-04-20] MEDS: LACTATED RINGERS 1,000 ML 42 ML IV (19:01)
[2025-04-20] MEDS: ACETAMINOPHEN IV 1,000 MG/100 ML VIAL 400 MG IV (19:40)
--- NOTE | 2025-04-20 19:52 | SUR.OPER ---
Supine on padded OR bed, head on pillow, arms padded and tucked at sides, legs uncrossed, safety belt at thigh, tape over blanket over lower legs .
[2025-04-20] MEDS: ALBUTEROL/IPRATROPIUM 3 ML AMPUL INH (21:55)
--- NOTE | 2025-04-20 22:08 | PM.OP.1 ---
Operative Date/Time/Diagnoses Date of procedure: 04/20/25 Time of procedure: 19:48 Pre-op diagnosis: Acute appendicitis Post-op diagnosis: same Procedure & Clinicians Procedure: Laparoscopic appendectomy with laparoscopic lysis of adhesions Same procedure(s) as scheduled: Yes Indications: She also has noted the onset of epigastric as well as right lower quadrant abdominal pain. The pain is sharp and is exacerbated by coughing and movement. She also complains that the pain increases with your urination and passing flatus. She speaks only Faroese and I could not get a feel for whether she has vomited or not. She does admit that she is not hungry and her last meal was yesterday in the afternoon. She also describes fevers and chills. Workup in the emergency department revealed a thickened appendicitis. Surgeon: ED* *Temp Assisted?: No Anesthesia Type: General Operative Notes Findings: The patient had adhesions between the omentum and the anterior abdominal wall in the pelvis in the area of the proposed site of the suprapubic port. The patient had a suppurative appendicitis with no periappendiceal abscess or free perforation. Specimen(s): other Applied: none Estimated Blood Loss (mL): 5 Blood products transfused: platelets Procedure in detail: After appropriate patient identification, the patient was placed on the procedure table in the supine position. After achievement adequate general anesthesia, the abdomen was prepped with ChloraPrep and draped in a sterile manner. After completion of the time-out, a vertical incision was made above the umbilicus using a 15 blade knife. The incision was deepened through dermis and subcu tissue using Bovie electrocautery. The the dissection was carried down to the linea alba which was opened under direct vision using Bovie electrocautery. The peritoneum was entered with a blunt index finger. A 12 Lithuanian Ugalde catheter was passed through the incision and secured with the balloon. The arm was insufflated with carbon dioxide to 15 mmHg pressure. A 5 mm scope was inserted through this and the patient was noted to have a large amount of adhesions in the pelvis in the midline. A 5 mm port was placed in the left lower quadrant through a stab incision and under direct vision. Using the 2 ports and a LigaSure the adhesions were taken down sequentially. This was carried out until the area for the proposed suprapubic port was cleaned of adhesions. A 5 mm port was then inserted into the abdomen through a stab incision under direct vision. The omentum that had covered the cecum and the right lower quadrant was removed using grasping forceps. The patient was placed in Trendelenburg and rolled lap laterally to the left. The cecum was followed to the base the appendix was identified. There is omentum that had covered the appendix was taken down bluntly using grasping clamps. The appendix was identified and followed back to the base. The mesoappendix was dissected off of the base of the appendix using a [place] dissector and a Endo-HEATHER with vascular charan was passed and fired. The base of the appendix was stapled and amputated using an endo HEATHER with tissue charan. The appendix was then placed in a specimen bag and brought out through the supraumbilical incision. The Ugalde catheter was reinserted and the abdomen is re-insufflated to 15 mmHg using carbon dioxide. The right lower quadrant was inspected no active bleeding was identified. The history of lysis air was inspected and no active bleeding was identified. All trocars were then taken out under direct vision. The supraumbilical fascia was reapproximated with an 0 Vicryl suture in a hilaai-rn-rhdme fashion. The skin incisions were anesthetized using 0.5% Marcaine with epinephrine. The skin incisions reapproximated using 4-0 undyed Monocryl in an interrupted subcuticular fashion. Steri-Strips and sterile dressings were placed and the procedure was terminated. The patient was transferred to recovery room in good condition having sustained about 5 cc blood loss Complications: none Post-operative Condition: stable Disposition: PACU
[2025-04-21 04:00] VITALS: BP 111/46; PULSE 100; RESP 20; TEMP 36.7; O2SAT 99
[2025-04-21 07:51] VITALS: BP 120/48; PULSE 85; RESP 16; TEMP 36.9; O2SAT 96
--- NOTE | 2025-04-21 11:54 | PC.NURSE ---
Addendum entered by Marcy Bui RN 04/21/25 17:57: Just checked on patient, used interpretor communication to see if patient would like to move to the bed, and she stated yes. Denies pain and states that she was feeling good. was talking to this RN after interpretor video shut off. He was speakjing vietnamese and asking if the iv could come out. This RN asked him twice if he would like to use the Interpretor video just so he clearly understood everything and he refused twice. Addendum entered by Marcy Bui RN 04/21/25 14:21: Patient will be getting up for dinner, she will start on oral medications, and her pure wick will be taken out at 1515 so that she can start getting up to the bathroom. Addendum entered by Marcy Bui RN 04/21/25 12:18: Just talked to senior director marketing to see if patient needed pain medication, she states that she is not in pain and is agreeable to get up for lunch. Original Note: Patient understands very little vietnamese, her can speak a bit more and understands some. We are using senior director marketing computer for more detailed conversations, and when the Dr and wastewater analyst lab analyst were both in to see patient. She has 3 lap sites covered with mepelex dressings, middle dressing just changed as it had some drainage an was not sticking well. Patient given 1mg of iv dilaudid earlier and helpful. She is visiting with her at this time.
[2025-04-21 12:16] LABS: Hematocrit 35.6 % (36-46); Hemoglobin 11.8 g/dL (12.0-16.0); Mean Corpuscular HGB Conc 33.2 % (30-36); Mean Corpuscular Hemoglobin 27.4 PG (26-34); Mean Corpuscular Volume 82.6 fL (80-100); Platelet Count 131 X10^3/uL (150-400)
--- NOTE | 2025-04-21 12:21 | P.PN_ITS ---
Subjective Subjective Date Patient Seen: 04/21/25 Interval history: Doing well, tolerating diet. Pain well controlled with oral pain medicine. Exam Vital Signs (past 8 hours): - 04/21/25 07:51 Temperature 98.4 F Pulse Rate 85 Respiratory Rate 16 Blood Pressure 120/48 L Pulse Oximetry 96 Oxygen Flow Rate 0 Fraction of Inspired Oxygen 32 SaO2/FiO2 Ratio 293 Oxygen Delivery Method Nasal Cannula Oxygen Flow Rate 0 Narrative Exam Narrative: Alert and oriented Lungs are clear to auscultation bilaterally Cardiac reveals a regular rate and rhythm Abdomen is soft with mild diffuse tenderness. There is some sanguinous drainage on the incisions. There is no oozing from any of the incisions. Objective Labs 04/21/25 11:55 04/19/25 15:05 Labs: Laboratory Results - last 24 hr 04/20/25 04/20/25 04/20/25 04:40 17:48 22:13 WBC RBC Hgb Hct MCV MCH MCHC RDW Plt Count POC Whole Bld Glucose 97 102 H Blood Type A Positive 04/21/25 11:55 WBC 8.5 RBC 4.31 Hgb 11.8 L Hct 35.6 L MCV 82.6 MCH 27.4 MCHC 33.2 RDW 14.3 Plt Count 131 L POC Whole Bld Glucose 129 H Blood Type PFSH Medical History Humeral fracture Social History household members: spouse and family Smoking Status: Current every day smoker alcohol intake: never Assessment & Plan Assessment and plan (1) Thrombocytopenia: Status: Acute (2) Acute appendicitis: Qualifiers: Acute appendicitis type: unspecified acute appendicitis type Qualified Code(s): K35.80 - Unspecified acute appendicitis Status: Acute (3) Hypertension: Status: Acute (4) Diabetes mellitus: Status: Acute Plan Is okay from a surgical point of view for the patient to be discharged to home. Recommend a follow up evaluation by a surgeon within the next 7-10 days. Recommend no lifting more than 10 lb for the next 6 weeks. Recommend no driving while patient has taken narcotic pain medicine. It is okay for the patient to shower. Time-Based Coding :: [TOTAL MINUTES] spent with patient and on the chart (including review of chart, obtaining history, exam, reviewing outside data, placing orders, documenting exam and treatment plan, and counseling patient) on [DATE]. Quality VTE Deep Vein Thrombosis/Pulmonary Embolism Present on Admission: No [facility] PROFEE Telephone Recorder Document charge(s): Yes
[2025-04-21 12:30] VITALS: BP 107/49; PULSE 85; RESP 16; TEMP 36.6; O2SAT 95
[2025-04-21] MEDS: ACETAMINOPHEN 325 MG TABLET 975 MG PO ×2 (15:08→20:58)
--- NOTE | 2025-04-21 19:14 | PM.PN.1 ---
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 She underwent appendectomy last night. Surgery was delayed secondary to thrombocytopenia. She did receive 2 units of platelets during surgery last evening. History is obtained using formal drying machine tender. Her is also at bedside Patient reports that when she is lying in bed, she is pain-free. She initially stated she was ready to go home. Upon further conversation with the patient's nurse, she states that the patient has not gotten out bed today. She continues to use a Purewick for urination. She has not been using any oral pain medications today. The RN does not feel the patient is ready for discharge. Thrombocytopenia history: She reports she was 1st told she had thrombocytopenia when she was living in [place] about 30 years ago. She states she did have some blood work done but was never told what the etiology of her low platelets were. She states when she was with her eldest son LEs were low again. Her eldest son also has had difficulty with thrombocytopenia. She states he was followed by Hematology when he was 2 years old and continues to follow regularly but stopped going about 10 years ago because he no longer wished to see doctors. She states he has difficulties with bleeding gums and difficulty with stopping bleeding when he gets cut. She states she herself has never had that difficulty. She states she did have surgery about 14 months ago with a bypass graft on her heart down at [facility]. She had had a NV and when they were assessing her for surgery they found she had persistent thrombocytopenia. After surgery they recommended follow-up with Hematology. She states she has seen a lastex operator as recently as 3 weeks ago in [place]. She was told by her lastex operator in [place] that she should have transfusions if her platelets get below 55. Exam Vital Signs (past 8 hours): - 04/21/25 12:30 Temperature 97.9 F Pulse Rate 85 Respiratory Rate 16 Blood Pressure 107/49 L Pulse Oximetry 95 Oxygen Flow Rate 0 Fraction of Inspired Oxygen 32 SaO2/FiO2 Ratio 293 Oxygen Delivery Method Nasal Cannula Oxygen Flow Rate 0 Narrative Exam Narrative: GEN: Very pleasant middle-aged female, Alert and oriented x 3, NAD HEENT:NC, Face symmetric CHEST: Respiratory excursions symmetric, CTAB CV: RRR, no M/R/G ABD: Soft, obese, tender in the right lower quadrant/ND, BT present in all 4 quadrants EXTR: warm, well perfused, no C/C/E SKIN: warm and dry, no rash NEURO: Alert and oriented x 3, nonfocal Objective Labs 04/21/25 11:55 04/19/25 15:05 Labs: Laboratory Results - last 24 hr 04/20/25 04/20/25 04/21/25 04:40 22:13 11:55 WBC 8.5 RBC 4.31 Hgb 11.8 L Hct 35.6 L MCV 82.6 MCH 27.4 MCHC 33.2 RDW 14.3 Plt Count 131 L POC Whole Bld Glucose 102 H 129 H Blood Type A Positive [facility] Medical History Humeral fracture Social History household members: spouse and family Smoking Status: Current every day smoker alcohol intake: never Assessment & Plan Assessment & Plan narrative: 1. Acute appendicitis, now postoperative day 1 from appendectomy Appreciate management per General surgery. She has had minimal activity secondary to pain. Encouraged her to use oral pain medication to help improve her mobility. She expresses understanding and agrees. 2. Chronic thrombocytopenia At baseline, her platelets are in the 50s. It was down to 37 preoperatively. She received 2 units of platelets during surgery and platelets were up to 131 today. 3. Coronary artery disease status post bypass graft in 2023 Echocardiogram in August of 2024 revealed a mild cardiomyopathy with an EF of 45-50% and slight hypokinesis of the inferolateral segment. Grade 2 diastolic dysfunction. No significant valvular abnormalities. No obvious intracardiac shunts. No intracardiac masses or thrombi. Will plan to resume her beta humera, aspirin, statin, LUCILA inhibitor and Jardiance. 4. Insulin-dependent diabetes mellitus Blood sugars have ranged from 102 last night to 129 today. Holding Lantus. 5. Hypertension Blood pressures are normotensive to mildly hypertensive. Will resume her beta-humera but add holding parameters. Code status Full Prophylaxis No chemical prophylaxis in the setting of thrombocytopenia and pending surgery Disposition I have requested records from [facility] to determine what workup has previously been done. Anticipate she will be able to discharge home tomorrow once she is mobilizing better Time-Based Coding :: [TOTAL MINUTES] spent with patient and on the chart (including review of chart, obtaining history, exam, reviewing outside data, placing orders, documenting exam and treatment plan, and counseling patient) on [DATE]. Quality VTE Deep Vein Thrombosis/Pulmonary Embolism Present on Admission: No
[2025-04-21 20:00] VITALS: BP 108/46; PULSE 80; RESP 16; TEMP 36.8; O2SAT 96
[2025-04-22] VITALS: BP 112/42; PULSE 80; RESP 19; TEMP 36.6; O2SAT 95
--- NOTE | 2025-04-22 03:04 | PC.NURSE ---
Addendum entered by Becky Vaz RN 04/22/25 03:52: Actual time task performed was on 04/21/25 at 1950. Original Note: sofa cover inspector ([employer] #[id number]) services utilized. Medications, call light use, plan of care, pain management and importance of ambulation explained to both patient and significant other, both verbalized understanding.
[2025-04-22 04:00] VITALS: BP 110/34; PULSE 76; RESP 17; TEMP 36.5; O2SAT 96
[2025-04-22 05:47] LABS: Add Manual Diff / Slide Review NO; Hematocrit 35.4 % (36-46); Hemoglobin 12.0 g/dL (12.0-16.0); Lymphocytes Absolute Auto 1600 /uL (1100-4500); Mean Corpuscular HGB Conc 33.8 % (30-36); Mean Corpuscular Hemoglobin 27.8 PG (26-34); Mean Corpuscular Volume 82.3 fL (80-100); Platelet Count 113 X10^3/uL (150-400)
[2025-04-22 05:58] LABS: Blood Urea Nitrogen 12 mg/dL (7-17); Calcium 8.3 mg/dL (8.4-10.2); Carbon Dioxide 23 mmol/L (22-32); Chloride 109 mmol/L (98-107); Estimated Glomerular Filt Rate > 60 mL/min (>60); Glucose 57 mg/dL (70-99); HEMOLYSIS < 15 (0-50); Potassium 3.6 mmol/L (3.4-5.1); Sodium 139 mmol/L (137-145)
[2025-04-22] MEDS: ACETAMINOPHEN 325 MG TABLET 975 MG PO (06:20)
[2025-04-22 08:00] VITALS: BP 132/72; PULSE 80; RESP 17; TEMP 36.4; O2SAT 96
[2025-04-22 09:01] VITALS: BP 132/72; PULSE 88
[2025-04-22] MEDS: METOPROLOL ER 25 MG TABLET PO (09:01)
[2025-04-22] MEDS: SPIRONOLACTONE 25 MG TABLET 12.5 MG PO (09:01)
[2025-04-22 09:31] VITALS: PULSE 66
--- NOTE | 2025-04-22 10:40 | PM.DS.1 ---
History of Present Illness History of Present Illness Chief complaint: back/abd px 4 days Narrative: From H&P: 61-year-old Luxembourgish-speaking male with past medical history of insulin-dependent diabetes, hypertension, hyperlipidemia, peripheral neuropathy and prior cardiac valve repair presents with abdominal pain. Per the patient's report the patient started to have lower abdominal pain that started 3 to 4 days ago. The patient also started to have subjective fever but denies any chills, nausea, vomiting, diarrhea, chest pain or shortness of breath. The patient states that his abdominal pain is right lower abdomen and radiates somewhat to his lower back. The patient denies any dysuria or diarrhea. In the emergency room, the patient patient's blood pressure was slightly low normal with systolic in the 90-1 100s. The patient was saturating well on room air. Glucose however was in the 60s and WBC was 12.3. Lactate was normal at 1.1. Other labs were relatively benign with negative troponin. The patient was given Zosyn. CT scan shows sign of acute appendicitis. General surgery was called to admit the patient for possible appendectomy. Medicine service was consulted due to multiple medical chronic condition that would need to be manage preop and postop. The patient was given D50 as well as D5. Also platelet was low at 51. Hospital course: She underwent appendectomy, on April 20. Uncomplicated. She was kept an additional day due to erratic blood sugars. 04/20: Uncomplicated appendectomy. 04/21: Chronic poor appetite, hypoglycemia related to poor oral intake. She was observed during the morning and felt to be stable for discharge. She was discussed directly with the surgeon who agreed with discharge. IMAGING: CXR: No acute pulmonary process. APCT: 1. Acute appendicitis. 2. Extensive, progressive changes in the anterior subcutaneous fat with developing soft tissue density and calcifications suggesting extensive injection granulomata. 3. Findings suggests that there is likely longstanding diabetes. The likely injection granulomata would be secondary to subcutaneous injection of medications. 4. Development of gallbladder dilatation with mild wall thickening and development of biliary ductal dilatation. Suspect possible common duct stone. Comments: Recommend urgent surgical consult for treatment of acute appendicitis. The likely injection granulomata may make it difficult to place laparoscopy ports. This should be understood at the time of surgery. Additionally, findings suggest the possibility of a common duct stone. Recommend nonemergent MRCP. A/P: 1. Acute appendicitis, improved after appendectomy. 2. Chronic thrombocytopenia, appears to be stable. At baseline, her platelets are in the 50s. It was down to 37 preoperatively. She received 2 units of platelets during surgery and platelets were up to 131 today. 3. Coronary artery disease status post bypass graft in 2023, appears to be stable. Echocardiogram in August of 2024 revealed a mild cardiomyopathy with an EF of 45-50% and slight hypokinesis of the inferolateral segment. Grade 2 diastolic dysfunction. No significant valvular abnormalities. No obvious intracardiac shunts. No intracardiac masses or thrombi. Will plan to resume her beta humera, aspirin, statin, LUCILA inhibitor and Jardiance. 4. Insulin-dependent diabetes mellitus, labile blood sugars. 5. Hypertension, stable. PLAN: -discharge with no change in baseline chronic medications, she will follow up with General surgery in 1 week. Discharge Providers Provider Date of admission: 04/19/25 19:54 Discharge Date: 04/22/25 Primary care physician: SUZAN Neville Discharge provider: Ebenezer Pierce MD Summary Status at Discharge Cognitive/behavioral status at discharge: oriented Functional status at discharge: independent ambulation Overall status at discharge: patient is back to baseline Time Spent with Patient Time spent: Greater than 30 minutes Exam Vital Signs (past 8 hours): - 04/22/25 04:00 04/22/25 08:00 04/22/25 09:01 Temperature 97.7 F 97.6 F Pulse Rate 76 80 88 Respiratory Rate 17 17 Blood Pressure 110/34 L 132/72 132/72 Pulse Oximetry 96 96 Oxygen Flow Rate 0 0 Fraction of Inspired Oxygen 32 SaO2/FiO2 Ratio 293 Oxygen Delivery Method Nasal Cannula Oxygen Flow Rate 0 Narrative Exam Narrative: NAD, alert and oriented. Fluent speech. Lungs are clear, normal rate and effort. Heart is regular, no murmur gallop or rub. Abdomen is soft, non distended. Extremities are free of edema. Surgical sites are unremarkable in the abdomen is completely tender to palpation. Objective Labs 04/22/25 04:51 04/22/25 04:51 Labs: Laboratory Results - last 24 hr 04/21/25 04/22/25 04/22/25 11:55 04:51 08:30 WBC 8.5 6.3 RBC 4.31 4.30 Hgb 11.8 L 12.0 Hct 35.6 L 35.4 L MCV 82.6 82.3 MCH 27.4 27.8 MCHC 33.2 33.8 RDW 14.3 14.1 Plt Count 131 L 113 L Neut % (Auto) 58.0 Lymph % (Auto) 25.6 [place] % (Auto) 8.2 Eos % (Auto) 7.7 H Baso % (Auto) 0.5 Neut # (Auto) 3600 Lymph # (Auto) 1600 [place] # (Auto) 500 Eos # (Auto) 500 H Baso # (Auto) 0 Sodium 139 Potassium 3.6 Chloride 109 H Carbon Dioxide 23 BUN 12 Creatinine 0.67 Estimated GFR > 60 BUN/Creatinine Ratio 17.9 Glucose 57 L POC Whole Bld Glucose 129 H 41 L* Calcium 8.3 L 04/22/25 09:05 WBC RBC Hgb Hct MCV MCH MCHC RDW Plt Count Neut % (Auto) Lymph % (Auto) [place] % (Auto) Eos % (Auto) Baso % (Auto) Neut # (Auto) Lymph # (Auto) [place] # (Auto) Eos # (Auto) Baso # (Auto) Sodium Potassium Chloride Carbon Dioxide BUN Creatinine Estimated GFR BUN/Creatinine Ratio Glucose POC Whole Bld Glucose 62 L Calcium PFSH Medical History Humeral fracture Social History household members: spouse and family alcohol intake: never Discharge Plan Discharge Plan Patient Disposition: Home Provider Discharge Comment: Ingresaste en el hospital con apendicitis aguda. La cirug?a se retras? debido a que ten?as un bajo recuento de plaquetas. Recibi? 2 unidades de plaquetas trip la cirug?a y pineda recuento de plaquetas es ahora de 131.000. Te encuentras jairo desde la cirug?a y ya est?s listo para irte a casa. Tiene ivette receta para un analg?sico, oxicodona. Por favor, t?coronado seg?n sea necesario para aliviar el dolor. Puede causar estre?imiento. Es posible que necesite jaymie un laxante si presenta estre?imiento. Por favor, acuda a la carrie con pineda hemat?logo seg?n lo programado. Por favor, regrese al hospital si presenta alguno de los siguientes s?ntomas: dolor intenso n?useas o v?mitos incapacidad para comer o beber fiebre o dificultad para respirar Utilic? el traductor de [employer], por lo que la traducci?n puede no ser exacta. Discharge orders & Medications Prescriptions: New oxycodone 5 mg Tablet 5 mg PO Q4HR PRN (Reason: Pain, Moderate (4-6)) Qty: 24 0RF Continued gabapentin 100 mg Capsule 300 mg PO TID Patient Comments: 2 capsules in morning, 2 capsules at breakfast, 2 capsules at dinner insulin lispro [Humalog KwikPen Insulin] 100 unit/mL Insulin Pen 35 unit SUBCUT DAILY Rx Instructions: took 20 units last night with dinner insulin glargine [Lantus Solostar U-100 Insulin] 100 unit/mL (3 mL) Insulin Pen 15 unit SUBCUT DAILY Jardiance 10 mg tablet 10 mg PO DAILY atorvastatin 80 mg tablet 80 mg PO BEDTIME metoprolol succinate 25 mg tablet extended release 24 hr 25 mg PO DAILY aspirin 81 mg capsule 81 mg PO DAILY lisinopril 2.5 mg tablet 2.5 mg PO DAILY spironolactone 25 mg tablet 12.5 mg PO DAILY acetaminophen [Tylenol] 325 mg tablet 650 mg PO Q6H Ozempic 0.25 mg or 0.5 mg (2 mg/3 mL) pen injector 0.25 mg SUBCUT QWEEK Discontinued insulin degludec See Rx Instructions SUBCUT .COMPLEX Patient Comments: 100 units/ml Rx Instructions: 30 units subcutaneously daily Medication counseling provided by Pharmacist: No Follow up/Referrals: Chani Mora ARNP [Primary Care Provider, Medical] Discharge Health Status Multidrug resistant organism: No MDRO Diet/Activity/Treatments Diet: Diet as Tolerated and Carb-consistent/Diabetic Activity: As tolerated Oxygen: N/A Visit Report/Discharge Packet Instructions: DI for an Appendectomy, DI for Laparoscopy, DI for Prescription Opioid Use, [facility]: Wound Care Stand Alone Forms: Patient Portal/API Discharge Data Primary Care Provider: Chani Mora Attending Provider: Angel Mendez Admit Date/Time: 04/19/25 19:54 Quality VTE Deep Vein Thrombosis/Pulmonary Embolism Present on Admission: No
--- NOTE | 2025-04-22 10:46 | PM.PN.IH.1 ---
Subjective Subjective Date Patient Seen: 04/22/25 Interval history: Interestingly, the patient did not go home yesterday. She has tolerating a diet. She states her pain is vastly improved. Exam Vital Signs (past 8 hours): - 04/22/25 04:00 04/22/25 08:00 04/22/25 09:01 Temperature 97.7 F 97.6 F Pulse Rate 76 80 88 Respiratory Rate 17 17 Blood Pressure 110/34 L 132/72 132/72 Pulse Oximetry 96 96 Oxygen Flow Rate 0 0 Fraction of Inspired Oxygen 32 SaO2/FiO2 Ratio 293 Oxygen Delivery Method Nasal Cannula Oxygen Flow Rate 0 Narrative Exam Narrative: Lungs are clear to auscultation bilaterally Cardiac reveals a regular rate and rhythm Abdomen is soft, nontender, with active bowel sounds. Dressing shows some minimal serosanguineous drainage. Objective Labs 04/22/25 04:51 04/22/25 04:51 Labs: Laboratory Results - last 24 hr 04/21/25 04/22/25 04/22/25 11:55 04:51 08:30 WBC 8.5 6.3 RBC 4.31 4.30 Hgb 11.8 L 12.0 Hct 35.6 L 35.4 L MCV 82.6 82.3 MCH 27.4 27.8 MCHC 33.2 33.8 RDW 14.3 14.1 Plt Count 131 L 113 L Neut % (Auto) 58.0 Lymph % (Auto) 25.6 [place] % (Auto) 8.2 Eos % (Auto) 7.7 H Baso % (Auto) 0.5 Neut # (Auto) 3600 Lymph # (Auto) 1600 [place] # (Auto) 500 Eos # (Auto) 500 H Baso # (Auto) 0 Sodium 139 Potassium 3.6 Chloride 109 H Carbon Dioxide 23 BUN 12 Creatinine 0.67 Estimated GFR > 60 BUN/Creatinine Ratio 17.9 Glucose 57 L POC Whole Bld Glucose 129 H 41 L* Calcium 8.3 L 04/22/25 09:05 WBC RBC Hgb Hct MCV MCH MCHC RDW Plt Count Neut % (Auto) Lymph % (Auto) [place] % (Auto) Eos % (Auto) Baso % (Auto) Neut # (Auto) Lymph # (Auto) [place] # (Auto) Eos # (Auto) Baso # (Auto) Sodium Potassium Chloride Carbon Dioxide BUN Creatinine Estimated GFR BUN/Creatinine Ratio Glucose POC Whole Bld Glucose 62 L Calcium PFSH Medical History Humeral fracture Social History household members: spouse and family Smoking Status: Current every day smoker alcohol intake: never Assessment & Plan Assessment and plan (1) Thrombocytopenia: Status: Acute (2) Acute appendicitis: Qualifiers: Acute appendicitis type: unspecified acute appendicitis type Qualified Code(s): K35.80 - Unspecified acute appendicitis Status: Acute (3) Hypertension: Status: Acute (4) Diabetes mellitus: Status: Acute Plan The patient is okay from a surgical point of view to be discharged to home. I have explained to the patient and her that she needs to follow up in 7-10 days with a surgeon. Time-Based Coding :: [TOTAL MINUTES] spent with patient and on the chart (including review of chart, obtaining history, exam, reviewing outside data, placing orders, documenting exam and treatment plan, and counseling patient) on [DATE]. Quality VTE Deep Vein Thrombosis/Pulmonary Embolism Present on Admission: No [employer] Contractor Document charge(s): Yes
[2025-04-22 12:00] VITALS: BP 102/39; PULSE 68; RESP 16; TEMP 36.5; O2SAT 95
--- NOTE | 2025-04-22 13:25 | CM.DPNOTE ---
DCP note MANAGER MEDICAL AFFAIRS reviewed EMR per chart, cleared to dc home. per MATERIAL PREPARATION WORKER, pt requested ferry boarding pass to [place], confirms pt has photo ID with her. MANAGER MEDICAL AFFAIRS completed priority boarding ferry pass, gave to RN to give to pt with DC paperwork. P: dc home today with OP f/u recommended, spouse to transport back to [place]. no further needs at this time. will continue to follow as needed for DCP Coordination WILBER Tripp
--- NOTE | 2025-04-22 14:30 | PC.NURSE ---
Discharge Note- Patient A&O, VSS, RA, no complaints of pain/discomfort. Discharge packet printed in [place] and given and reviewed with patient. All questions/concerns addressed. Follow-up appointment scheduled for patient with MD Zhao. PIV/TELE discontinued. Patient able to dress self and pack all belongings. Patient at bedside to assist with dressing and belongings. Patient taken down to POV accompanied by .
== END 2025-04-22 13:15 | disposition home or self-care (01) ==
LOC: ED 19:36 → AC 04-20 11:28
PROVIDERS: Emergency Medicine; Family Medicine; Surgery Trauma Surgery; Admitting Provider Internal Medicine; Emergency Provider Physician Assistant; PCP Nurse Practitioner Family; Referring Provider Physician Assistant; Visit Provider Internal Medicine
PROC: 0DTJ4ZZ Resection of Appendix, Percutaneous Endoscopic Approach (ICD-10-PCS; CPT 44970; principal; 2025-04-20 19:00)
DX: K35.80 Unspecified acute appendicitis (principal); E11.40 Type 2 diabetes mellitus with diabetic neuropathy, unspecified; I10 Essential (primary) hypertension; E78.5 Hyperlipidemia, unspecified; M54.9 Dorsalgia, unspecified; G89.29 Other chronic pain; F17.210 Nicotine dependence, cigarettes, uncomplicated; Z79.4 Long term (current) use of insulin; Z79.85 Long-term (current) use of injectable non-insulin antidiabetic drugs; K66.0 Peritoneal adhesions (postprocedural) (postinfection)
CPT/HCPCS: 44970; 36415; 36430; 71045; 74177; 80048; 80053; 81001; 82962; 83605; 84145; 84484; 85025; 85027; 85610; 85730; 86900; 86901; 87040; 93005; 96365; 96366; 96367; 96368; 96375; 96376; 99284; G0378; J0131; J0330; J1171; J1885; J2405; J2543; J2704; J2765; J3010; J3490; J7030; J7042; J7050; J7120; P9035; Q9967

== ENCOUNTER → 2025-05-07 08:50 | Outpatient (CLI) | payer SELFPAY ==
[2025-04-19 23:01] VITALS: BMI 27.5
--- NOTE | 2025-05-10 07:33 | DI.NM.S_ITS ---
DATE OF SERVICE: 05/07/2025 Pharmacological Perfusion Study INDICATIONS: Chest pain with known history of two-vessel bypass surgery with DAVIS to LAD and radial artery to PDA on 02/14/2024 with chest pain, with HFrEF and ischemic cardiomyopathy. RADIOPHARMACEUTICAL: 25 millicurie technetium-99m Myoview IV was injected at stress and 11.6 millicurie technetium-99m Myoview IV was injected at rest. CARDIAC STRESS: The patient underwent IV Lexiscan perfusion study under the supervision of an attending staff using standard intravenous Lexiscan as per protocol. The patient remained hemodynamically stable. Resting blood pressure was 116/58. Baseline rhythm was sinus. During stress, no convincing inducible ischemic changes seen. No significant arrhythmias. No chest pain. Had minimal dyspnea. She remained hemodynamically stable. RAW DATA: Breast shadow was seen. GATED STUDY: Resting LV ejection fraction 60% and stress LV ejection fraction 51%. There is no obvious wall motion abnormalities. Resting end-diastolic volume 92 mL. TID ratio 1.16, which is within normal limits. Lung/heart ratio 0.24, which is within normal limits. MYOCARDIAL PERFUSION SCAN: Stress supine and resting supine images were compared to each other. There is no stress prone images. Resting supine images revealed moderate size, moderate to severely decreased perfusion of mid to distal anterior wall extending into the anterior apex. Stress supine revealed moderate size, moderate to severely decreased perfusion of mid to distal anterior wall extending into the anterior apex as well as entire anterior lateral wall. CONCLUSION: This is an abnormal myocardial perfusion study consistent with moderate size infarction of mid to distal anterior wall, anterior apex as well as significant reversible ischemia of anterior lateral wall. As patient does not have any stress prone images and on raw data, there is a breast shadow, some of the anterior wall and anterior apical defect could be due to breast tissue attenuation artifact as there is no significant wall motion abnormalities. 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 Stress LV ejection fraction 51% and resting LV ejection fraction 60%. Correlate clinically and consider repeat left heart catheterization. Liz Jacobson - JASE/quan/ALLEY doc#: [id number]/job#: [id number] dd: 05/07/2025 16:50:00 dt: 05/07/2025 16:58:00 DICTATING MD/COPIES TO: Hay Smart MD; Dr. Fuchs COPIES MNE: LUNA; ; Dr. Fuchs
== END ==
PROVIDERS: PCP Nurse Practitioner Family; Referring Provider Internal Medicine; Visit Provider Internal Medicine
DX: I25.10 Atherosclerotic heart disease of native coronary artery without angina pectoris (principal); R94.39 Abnormal result of other cardiovascular function study; I50.20 Unspecified systolic (congestive) heart failure; I42.9 Cardiomyopathy, unspecified; Z95.1 Presence of aortocoronary bypass graft
CPT/HCPCS: 78452; 93017; A9502; J2785